=== PATIENT | male | born 1965 | race American Indian/Alaskan Native ===

== ENCOUNTER 2022-11-11 11:12 | Outpatient (AMB) | payer OTHER, SELFPAY ==
[2022-11-11 11:21] VITALS: BP 128/76; PULSE 83; O2SAT 97; BMI 31.8
--- NOTE | 2022-11-11 11:21 | MHC.PC.OV ---
Vital Signs 11/11/22 11:21 Height 6 ft 1 in Weight 241 lb BMI 31.8 BP 128/76 Blood Pressure Location Lt brachial Position Sitting Pulse 83 Pulse Source Pulse Oximeter Pulse Oximetry (%) 97 Oxygen Delivery Method Room Air Intake Visit Reasons: Hypercholesterolemia chronic low back pain Allergies No Known Allergies Allergy (Verified 11/11/22 11:22) Medication List - Last Reconciled 11/11/22 by Dagoberto Varela MD alprazolam 0.25 mg PO DAILY ascorbate calcium (vitamin C) 500 mg PO DAILY mecobalamin (vitamin B12) 1,000 mcg PO DAILY metaxalone 800 mg PO TID multivitamin 1 tab PO DAILY [id number] 1,000-50 mg (Airborne) ea PO tramadol 50 mg PO Q8H 30 days Tobacco use date assessed: 05/06/22 Dental Screening Dental Screen Date: 11/11/22 Did you have a dental visit in the last 12 months?: Yes Did you have a dental problem in the last 6 months where you did not have access to dental care?: No Was dental information given to patient?: Patient has dentist HPI Hypercholesterolemia chronic low back pain HPI Details 57-year-old obese male with chronic low back pain on narcotic pain medication taken p.r.n. PTSD and hypercholesterolemia last seen in July 2022 patient is up-to-date with colonoscopy patient had blood work done in [facility] October 2022 B12 sugar normal kidney function is normal liver numbers are normal folic acid normal cholesterol total should be less than 200 patient's number is 228 triglyceride needs to be less than 150 his numbers 282 bad cholesterol needs to be less than 130 his numbers 129 prostate number is normal thyroid number is normal no anemia PFSH Medical History (Updated 08/05/22 @ 11:07 by Dagoberto Varela MD) Alcohol abuse Asthma Erectile dysfunction Hypercholesterolemia Low back pain Obesity (BMI 30-39.9) PTSD (post-traumatic stress disorder) Vitamin D deficiency Surgical History History of colonoscopy Family History (Updated 08/05/22 @ 10:50 by Ana Paula Guillermo CMA) Father Bone cancer Depression Mother Colon cancer Diabetes Stroke Myocardial infarction, acute, initial episode of care Social History Housing: Apartment Alcohol intake: former Patient Tobacco Use Status: Former Tobacco user Tobacco use type: Cigarette Years Smoked: stopped 2009 e-Cigarette/Vaping Use: Never Used Second Hand Smoke Exposure: No service: No Current occupational status: retired Cognitive needs: No Hearing needs: No Vision needs: Yes Questionnaire PHQ-9 Over the last 2 weeks, how often have you been bothered by any of the following problems? 1. Little interest or pleasure in doing things: not at all 2. Feeling down, depressed, or hopeless: not at all 3. Trouble falling or staying asleep, or sleeping too much: not at all 4. Feeling tired or having little energy: not at all 5. Poor appetite or overeating: not at all 6. Feeling bad about yourself - or that you are a failure or have let yourself or your family down: not at all 7. Trouble concentrating on things, such as reading the newspaper or watching television: not at all 8. Moving or speaking so slowly that other people could have noticed. Or the opposite - being so fidgety or restless that you have been moving around a lot more than usual: not at all 9. Thoughts that you would be better off or of hurting yourself in some way: not at all Total score: 0 Depression Screening Interpretation: Negative Source: Developed by Drs. Orlin Dial, Darnell Mercado and colleagues, with an educational lucas from [employer]. Thrive Questionnaire Date Thrive assessed: 05/06/22 AUDIT C Alcohol Use Questionnaire (AUDIT-C) 1. How often do you have a drink containing alcohol?: Never 3. How often do you have six or more drinks on one occasion?: Never Total Score: 0 TANIYA-7 AMB Questionnaire TANIYA-7 Date TANIYA - 7 assessed: 05/06/22 Source: Developed by Drs. Orlin Dial, Darnell Mercado and colleagues, with an educational lucas from [employer]. Physical exam (Primary Care) Vital Signs: Last Vital Signs Pulse 83 11/11/22 11:21 BP 128/76 11/11/22 11:21 Pulse Ox 97 11/11/22 11:21 Oxygen Delivery Method Room Air 11/11/22 11:21 BMI result Body Mass Index 31.8 Tobacco/Smoking Status: Tobacco use Status Tobacco use date assessed 05/06/22 11/11/22 11:24 Patient Tobacco Use Status Former Tobacco user 11/11/22 11:24 Tobacco use type Cigarette 11/11/22 11:24 e-Cigarette/Vaping Use Never Used 11/11/22 11:24 PHQ-9: PHQ-9 Score PHQ-9: Total score 0 11/11/22 11:24 Depression Screening Interpretation: Negative Thrive Assessment: Date of Thrive Assessment Date Thrive assessed 05/06/22 11/11/22 11:24 Const General: alert; No acute distress Eyes Conjunctivae: conjunctivae normal Resp Auscultation: clear to auscultation bilaterally Cardio Rate: regular rate Rhythm: regular rhythm GI Inspection: Yes normal to inspection Extrem General: Yes normal to inspection and No edema Assessment and Plan Assessment & Plan (1) Generalized anxiety disorder: Comment: Declined referral for counseling Code(s): F41.1 - Generalized anxiety disorder Plan: Continue with present medication as needed (2) Hypercholesterolemia: Code(s): E78.00 - Pure hypercholesterolemia, unspecified Plan: Avoid fried foods, chicken skin, eggs, butter margarine, pastries and meat. Be it pork or beef they have a lot of cholesterol LDL goal of less than 130 and triglyceride of less than 150 (3) Obesity (BMI 30-39.9): Code(s): E66.9 - Obesity, unspecified Plan: Diet and exercise (4) Low back pain: Comment: Left paracentral disc herniation L5-S1 2009 Code(s): M54.5 - Low back pain Qualifiers: Chronicity: chronic Back pain laterality: unspecified Sciatica presence: without sciatica Qualified Code(s): M54.5 - Low back pain; G89.29 - Other chronic pain Plan: Narcotic pain meds: Is being prescribed with the understanding that these medications are potentially addictive and should be used only when absolutely necessary and must always be secured. Any remaining pills should be safely disposed off appropriately. Patient is advised that narcotics can impaired judgment and one should not drive or operate heavy machinery while taking these medications. Never share these medications with anybody and do not leave them unattended. They will not be replaced under any circumstances. Medications: Refilled metaxalone 800 mg PO TID 90 tabs 1RF G89.29 - Other chronic pain, M54.5 - Low back pain Coding Level of Care Code Est Pt Level 4 (00378) Diagnoses Generalized anxiety disorder F41.1 Hypercholesterolemia E78.00 Obesity (BMI 30-39.9) E66.9 Low back pain M54.5; G89.29 Chronicity: chronic Back pain laterality: unspecified Sciatica presence: without sciatica Additional Codes PHQ-9 - 45829 - PHQ-9 Billing: Y ([id number])
== END 2022-11-11 11:52 | disposition home or self-care (01) ==
PROVIDERS: PCP Internal Medicine; Visit Provider Internal Medicine
DX: F41.1 Generalized anxiety disorder (principal); E78.00 Pure hypercholesterolemia, unspecified; Z68.31 Body mass index [BMI] 31.0-31.9, adult; E66.9 Obesity, unspecified; M54.50 Low back pain, unspecified; G89.29 Other chronic pain
CPT/HCPCS: 99214

== ENCOUNTER 2023-06-09 14:11 | Outpatient (AMB) | payer OTHER, SELFPAY ==
--- NOTE | 2023-06-09 14:12 | A.OFFPC_ITS ---
Vital Signs 06/09/23 14:14 Height 6 ft 1 in Weight 244 lb 4 oz BMI 32.2 BP 120/60 Blood Pressure Location Lt brachial Position Sitting Pulse 79 Pulse Source Pulse Oximeter Pulse Oximetry (%) 96 Oxygen Delivery Method Room Air Intake Visit Reasons: LBP, Cholesterol Intake Note: Patient is here to follow up on LBP, Cholesterol. Solar Lab Technician Required: No Vehicle Controls Engineer: Not Required per policy Accompanied by: Self / Same As Patient Allergies No Known Allergies Allergy (Verified 06/09/23 14:13) Tobacco use date assessed: 06/09/23 Dental Screening Dental Screen Date: 06/09/23 Did you have a dental visit in the last 12 months?: No Did you have a dental problem in the last 6 months where you did not have access to dental care?: No Was dental information given to patient?: Patient has dentist HPI LBP, Cholesterol HPI Details 58-year-old obese male with chronic low back pain on narcotic pain medication hypercholesterolemia and generalized anxiety disorder last seen in October 2022. Patient's colonoscopy 2018. noted weight gain [facility] Medical History (Updated 06/09/23 @ 14:17 by Dagoberto Varela MD) Alcohol abuse Erectile dysfunction Hypercholesterolemia PTSD (post-traumatic stress disorder) Vitamin D deficiency Obesity (BMI 30-39.9) Asthma Low back pain Surgical History History of colonoscopy Family History Father Bone cancer Depression Mother Colon cancer Diabetes Stroke Myocardial infarction, acute, initial episode of care Social History (Updated 06/09/23 @ 14:19 by MIKAEL Solares) Housing: Apartment Alcohol intake: former Patient Tobacco Use Status: Former Tobacco user Tobacco use type: Cigarette Years Smoked: stopped 2009 e-Cigarette/Vaping Use: Currently Using Second Hand Smoke Exposure: No service: No Current occupational status: retired Cognitive needs: No Hearing needs: No Vision needs: Yes Questionnaire PHQ-9 Over the last 2 weeks, how often have you been bothered by any of the following problems? 1. Little interest or pleasure in doing things: not at all 2. Feeling down, depressed, or hopeless: several days 3. Trouble falling or staying asleep, or sleeping too much: several days 4. Feeling tired or having little energy: not at all 5. Poor appetite or overeating: several days 6. Feeling bad about yourself - or that you are a failure or have let yourself or your family down: several days 7. Trouble concentrating on things, such as reading the newspaper or watching television: several days 8. Moving or speaking so slowly that other people could have noticed. Or the opposite - being so fidgety or restless that you have been moving around a lot more than usual: several days 9. Thoughts that you would be better off or of hurting yourself in some way: not at all Total score: 6 Depression Screening Interpretation: Positive Depression Screening Done: Yes Source: Developed by Drs. Orlin Dial, Alondra Helm, Darnell Snow and colleagues, with an educational lucas from [employer]. Thrive Questionnaire Date Thrive assessed: 06/09/23 I am a: Patient What is your living situation today?: I have a steady place to live Within the past 12 months, did the food you bought not last and you didn't have the money to get more?: Never true Within the past 12 months, did you worry whether your food would run out before you got money to buy more?: Never true Do you have trouble paying for medicines?: No Do you have trouble getting transportation to medical appointments?: No Do you have trouble paying your heating and electricity bill?: No Do you have trouble taking care of your child, family member or friend?: No Do you have trouble with day-to-day activities such as bathing, preparing meals, shopping, managing finances, etc.?: No Are you currently unemployed and looking for a job?: No Are you interested in more education?: No Currently or been in a relationship where the following occur: no concerns reported THRIVE Score: 0 AUDIT C Alcohol Use Questionnaire (AUDIT-C) 1. How often do you have a drink containing alcohol?: Never Total Score: 0 TANIYA-7 AMB Questionnaire TANIYA-7 Date TANIYA - 7 assessed: 06/09/23 Feeling nervous, anxious, or on edge: 1 = Several days Not being able to stop or control worryin = Several days Worrying too much about different things: 1 = Several days Trouble relaxin = Several days Being so restless that it is hard to sit still: 1 = Several days Becoming easily annoyed or irritable: 0 = Not at all Feeling afraid as if something awful might happen: 0 = Not at all Total TANIYA-7 score (0-4 normal; 5-9 mild; 10-14 moderate; 15-21 severe): 5 Source: Developed by Drs. Orlin Dial, Alondra Helm, Darnell Snow and colleagues, with an educational lucas from [employer]. Physical exam (Primary Care) Vital Signs: Last Vital Signs Pulse 79 06/09/23 14:14 BP 120/60 06/09/23 14:14 Pulse Ox 96 06/09/23 14:14 Oxygen Delivery Method Room Air 06/09/23 14:14 BMI result Body Mass Index 32.2 Tobacco/Smoking Status: Tobacco use Status Tobacco use date assessed 06/09/23 06/09/23 14:18 Patient Tobacco Use Status Former Tobacco user 06/09/23 14:19 Tobacco use type Cigarette 06/09/23 14:19 e-Cigarette/Vaping Use Currently Using 06/09/23 14:22 PHQ-9: PHQ-9 Score PHQ-9: Total score 6 06/09/23 14:22 Depression Screening Interpretation: Positive Thrive Assessment: Date of Thrive Assessment Date Thrive assessed 06/09/23 06/09/23 14:18 Currently or been in a relationship where the following occur: no concerns reported Const General: alert; No acute distress Eyes Conjunctivae: conjunctivae normal Resp Auscultation: clear to auscultation bilaterally Cardio Rate: regular rate Rhythm: regular rhythm GI Inspection: Yes normal to inspection Extrem General: Yes normal to inspection and No edema Assessment and Plan Assessment & Plan (1) Low back pain: Comment: Left paracentral disc herniation L5-S1 2009 Code(s): M54.5 - Low back pain Qualifiers: Back pain laterality: unspecified Chronicity: chronic Sciatica presence: without sciatica Qualified Code(s): M54.5 - Low back pain; G89.29 - Other chronic pain Plan: Narcotic pain meds: Is being prescribed with the understanding that these medications are potentially addictive and should be used only when absolutely necessary and must always be secured. Any remaining pills should be safely disposed off appropriately. Patient is advised that narcotics can impaired judgment and one should not drive or operate heavy machinery while taking these medications. Never share these medications with anybody and do not leave them unattended. They will not be replaced under any circumstances. (2) Obesity (BMI 30-39.9): Code(s): E66.9 - Obesity, unspecified Plan: Diet and exercise (3) Hypercholesterolemia: Code(s): E78.00 - Pure hypercholesterolemia, unspecified Plan: Avoid fried foods, chicken skin, eggs, butter margarine, pastries and meat. Be it pork or beef they have a lot of cholesterol (4) Generalized anxiety disorder: Comment: Declined referral for counseling Code(s): F41.1 - Generalized anxiety disorder Plan: Continue with present therapy (5) Tubular adenoma of colon: Code(s): D12.6 - Benign neoplasm of colon, unspecified Plan: Patient is reminded about colonoscopy Orders: Referrals Gastroenterology Referral D12.6 - Benign neoplasm of colon, unspecified Medications: Refilled tramadol 50 mg PO Q8H 30 days 90 tabs 0RF G89.29 - Other chronic pain, M54.5 - Low back pain metaxalone 800 mg PO TID 90 tabs 1RF G89.29 - Other chronic pain, M54.5 - Low back pain Coding Level of Care Code Est Pt Level 4 (37041) Diagnoses Chronic low back pain without sciatica, unspecified back pain laterality M54.5; G89.29 Back pain laterality: unspecified Chronicity: chronic Sciatica presence: without sciatica Obesity (BMI 30-39.9) E66.9 Hypercholesterolemia E78.00 Generalized anxiety disorder F41.1 Tubular adenoma of colon D12.6
[2023-06-09 14:14] VITALS: BP 120/60; PULSE 79; O2SAT 96; BMI 32.2
== END 2023-06-09 14:35 | disposition home or self-care (01) ==
PROVIDERS: PCP Internal Medicine; Visit Provider Internal Medicine
DX: M54.50 Low back pain, unspecified (principal); G89.29 Other chronic pain; Z68.32 Body mass index [BMI] 32.0-32.9, adult; E66.9 Obesity, unspecified; E78.00 Pure hypercholesterolemia, unspecified; F41.1 Generalized anxiety disorder; D12.6 Benign neoplasm of colon, unspecified
CPT/HCPCS: 99214

== ENCOUNTER 2023-09-18 09:16 | Outpatient (AMB) | payer OTHER, SELFPAY ==
[2023-09-18 09:19] VITALS: BP 122/78; PULSE 74; O2SAT 98; BMI 31.9
--- NOTE | 2023-09-18 09:19 | MHC.PC.OV ---
Vital Signs 09/18/23 09:19 Height 6 ft 1 in Weight 242 lb 0.8 oz BMI 31.9 BP 122/78 Blood Pressure Location Lt brachial Position Sitting Pulse 74 Pulse Source Pulse Oximeter Pulse Oximetry (%) 98 Oxygen Delivery Method Room Air Intake Visit Reasons: LBP Performance Manager Required: No Allergies No Known Allergies Allergy (Verified 09/18/23 09:19) Medication List - Last Reconciled 09/18/23 by Dagoberto Varela MD alprazolam 0.25 mg PO DAILY ascorbate calcium (vitamin C) 500 mg PO DAILY mecobalamin (vitamin B12) 1,000 mcg PO DAILY metaxalone 800 mg PO TID multivitamin 1 tab PO DAILY [id number] 1,000-50 mg (Airborne) ea PO tramadol 50 mg PO Q8H 30 days Tobacco use date assessed: 09/18/23 Dental Screening Dental Screen Date: 06/09/23 HPI LBP HPI Details 58-year-old obese male with chronic low back pain on narcotic pain medication hypercholesterolemia generalized anxiety disorder. Patient has had colonoscopy in March 2014 having tubular adenoma and was advised to get to follow-up with Gastroenterology again. Last seen 06/10/2023 together 15 years and got recently. has spoken with Dr. Lyon- October 03, 2023. [facility] Medical History (Updated 09/18/23 @ 09:41 by Dagoberto Varela MD) Alcohol abuse Erectile dysfunction Hypercholesterolemia PTSD (post-traumatic stress disorder) Vitamin D deficiency Obesity (BMI 30-39.9) Asthma Low back pain Surgical History History of colonoscopy Family History Father Bone cancer Depression Mother Colon cancer Diabetes Stroke Myocardial infarction, acute, initial episode of care Social History (Updated 06/09/23 @ 14:19 by MIKAEL Solares) Housing: Apartment Alcohol intake: former Patient Tobacco Use Status: Former Tobacco user Tobacco use type: Cigarette Years Smoked: stopped 2009 e-Cigarette/Vaping Use: Currently Using Second Hand Smoke Exposure: No service: No Current occupational status: retired Cognitive needs: No Hearing needs: No Vision needs: Yes Questionnaire Thrive Questionnaire Date Thrive assessed: 06/09/23 I am a: Patient What is your living situation today?: I have a steady place to live Within the past 12 months, did the food you bought not last and you didn't have the money to get more?: Never true Within the past 12 months, did you worry whether your food would run out before you got money to buy more?: Never true Do you have trouble paying for medicines?: No Do you have trouble getting transportation to medical appointments?: No Do you have trouble paying your heating and electricity bill?: No Do you have trouble taking care of your child, family member or friend?: No Do you have trouble with day-to-day activities such as bathing, preparing meals, shopping, managing finances, etc.?: No Are you currently unemployed and looking for a job?: No Are you interested in more education?: No Currently or been in a relationship where the following occur: no concerns reported THRIVE Score: 0 AUDIT C Alcohol Use Questionnaire (AUDIT-C) 1. How often do you have a drink containing alcohol?: Never Total Score: 0 TANIYA-7 AMB Questionnaire TANIYA-7 Date TANIYA - 7 assessed: 06/09/23 Source: Developed by Drs. Orlin Dial, Alondra Helm, Darnell Snow and colleagues, with an educational lucas from [employer]. Physical exam (Primary Care) Vital Signs: Last Vital Signs Pulse 74 09/18/23 09:19 BP 122/78 09/18/23 09:19 Pulse Ox 98 09/18/23 09:19 Oxygen Delivery Method Room Air 09/18/23 09:19 BMI result Body Mass Index 31.9 Tobacco/Smoking Status: Tobacco use Status Tobacco use date assessed 09/18/23 09/18/23 09:19 Patient Tobacco Use Status Former Tobacco user 09/18/23 09:19 Tobacco use type Cigarette 09/18/23 09:19 e-Cigarette/Vaping Use Currently Using 09/18/23 09:19 Thrive Assessment: Date of Thrive Assessment Date Thrive assessed 06/09/23 09/18/23 09:19 Currently or been in a relationship where the following occur: no concerns reported Const General: alert; No acute distress Eyes Conjunctivae: conjunctivae normal Resp Auscultation: clear to auscultation bilaterally Cardio Rate: regular rate Rhythm: regular rhythm GI Inspection: Yes normal to inspection Extrem General: Yes normal to inspection and No edema Assessment and Plan Assessment & Plan (1) Tubular adenoma of colon: Comment: Two thousand fourteen otherwise Code(s): D12.6 - Benign neoplasm of colon, unspecified Plan: Patient is reminded about colonoscopy again. (2) Obesity (BMI 30-39.9): Code(s): E66.9 - Obesity, unspecified Plan: Diet and exercise (3) Low back pain: Comment: Left paracentral disc herniation L5-S1 2009 Code(s): M54.5 - Low back pain Qualifiers: Chronicity: chronic Back pain laterality: unspecified Sciatica presence: without sciatica Qualified Code(s): M54.5 - Low back pain; G89.29 - Other chronic pain Plan: Narcotic pain meds: Is being prescribed with the understanding that these medications are potentially addictive and should be used only when absolutely necessary and must always be secured. Any remaining pills should be safely disposed off appropriately. Patient is advised that narcotics can impaired judgment and one should not drive or operate heavy machinery while taking these medications. Never share these medications with anybody and do not leave them unattended. They will not be replaced under any circumstances. (4) Hypercholesterolemia: Code(s): E78.00 - Pure hypercholesterolemia, unspecified Plan: Avoid fried foods, chicken skin, eggs, butter margarine, pastries and meat. Be it pork or beef they have a lot of cholesterol 11/07/2022 last blood work (5) Generalized anxiety disorder: Comment: Declined referral for counseling Code(s): F41.1 - Generalized anxiety disorder Plan: Continue with present medication Orders: Orders Complete Blood Count Auto Diff 2 Months E78.00 - Pure hypercholesterolemia, unspecified Free T4 (Free Thyroxine) 2 Months E78.00 - Pure hypercholesterolemia, unspecified Lipid Panel 2 Months E78.00 - Pure hypercholesterolemia, unspecified Vitamin B12 and Folate 2 Months E78.00 - Pure hypercholesterolemia, unspecified Comprehensive Met. Panel 2 Months E78.00 - Pure hypercholesterolemia, unspecified Thyroid Stimulating Hormone 2 Months E78.00 - Pure hypercholesterolemia, unspecified Prostate Specific Antigen Scr 2 Months E78.00 - Pure hypercholesterolemia, unspecified Coding Level of Care Code Est Pt Level 4 (75775) Diagnoses Tubular adenoma of colon D12.6 Obesity (BMI 30-39.9) E66.9 Chronic low back pain without sciatica, unspecified back pain laterality M54.5; G89.29 Chronicity: chronic Back pain laterality: unspecified Sciatica presence: without sciatica Hypercholesterolemia E78.00 Generalized anxiety disorder F41.1
== END 2023-09-18 09:57 | disposition home or self-care (01) ==
PROVIDERS: PCP Internal Medicine; Visit Provider Internal Medicine
DX: D12.6 Benign neoplasm of colon, unspecified (principal); E66.9 Obesity, unspecified; Z68.41 Body mass index [BMI] 40.0-44.9, adult; M54.50 Low back pain, unspecified; G89.29 Other chronic pain; E78.00 Pure hypercholesterolemia, unspecified; F41.1 Generalized anxiety disorder
CPT/HCPCS: 99214

== ENCOUNTER 2024-01-22 08:48 | Outpatient (AMB) | payer BC, SELFPAY ==
--- NOTE | 2024-01-22 08:50 | MHC.PC.OV ---
Vital Signs 01/22/24 08:51 Height 6 ft 1 in Weight 111.13 kg BMI 32.3 BP 118/78 Blood Pressure Location Lt brachial Position Sitting Pulse 71 Pulse Source Pulse Oximeter Pulse Oximetry (%) 97 Oxygen Delivery Method Room Air Intake Visit Reasons: CLBP Director Paid Media Required: No Accompanied by: Self / Same As Patient Allergies cortisone Adverse Reaction (Mild, Verified 01/22/24 08:52) Itching Medication List - Last Reconciled 01/22/24 by Dagoberto Varela MD alprazolam 0.25 mg PO DAILY ascorbate calcium (vitamin C) 500 mg PO DAILY ketoconazole 2% 1 appl topical 2XW mecobalamin (vitamin B12) 1,000 mcg PO DAILY metaxalone 800 mg PO TID multivitamin 1 tab PO DAILY [id number] 1,000-50 mg (Airborne) ea PO tramadol 50 mg PO Q8H 30 days Tobacco use date assessed: 09/18/23 Dental Screening Dental Screen Date: 01/22/24 Did you have a dental visit in the last 12 months?: No Did you have a dental problem in the last 6 months where you did not have access to dental care?: No Was dental information given to patient?: Patient has dentist HPI CLBP HPI Details 58-year-old obese male with chronic low back pain hypercholesterolemia generalized anxiety disorder last seen in 09/08/2023. Patient has been reminded about colonoscopy because of the last test in 2013. He is scheduled in January. Complete blood work 11/07/2022 LDL of 129 triglyceride of 282. complains of having dry scalp and prutitic PFSH Medical History (Updated 01/22/24 @ 09:22 by Dagoberto Varela MD) Alcohol abuse Erectile dysfunction Hypercholesterolemia PTSD (post-traumatic stress disorder) Vitamin D deficiency Obesity (BMI 30-39.9) Asthma Low back pain Surgical History History of colonoscopy Family History Father Bone cancer Depression Mother Colon cancer Diabetes Stroke Myocardial infarction, acute, initial episode of care Social History Housing: Apartment Alcohol intake: former Patient Tobacco Use Status: Former Tobacco user Tobacco use type: Cigarette Years Smoked: stopped 2009 e-Cigarette/Vaping Use: Currently Using Second Hand Smoke Exposure: No service: No Current occupational status: retired Cognitive needs: No Hearing needs: No Vision needs: Yes Questionnaire Thrive Questionnaire Date Thrive assessed: 06/09/23 Are you currently unemployed and looking for a job?: No TANIYA-7 AMB Questionnaire TANIYA-7 Date TANIYA - 7 assessed: 06/09/23 Source: Developed by Drs. Orlin Dial, Alondra Helm, Darnell Snow and colleagues, with an educational lucas from [employer]. Physical exam (Primary Care) Vital Signs: Last Vital Signs Pulse 71 01/22/24 08:51 BP 118/78 01/22/24 08:51 Pulse Ox 97 01/22/24 08:51 Oxygen Delivery Method Room Air 01/22/24 08:51 BMI result Body Mass Index 32.3 Tobacco/Smoking Status: Tobacco use Status Tobacco use date assessed 09/18/23 01/22/24 08:56 Patient Tobacco Use Status Former Tobacco user 01/22/24 08:56 Tobacco use type Cigarette 01/22/24 08:56 e-Cigarette/Vaping Use Currently Using 01/22/24 08:56 Thrive Assessment: Date of Thrive Assessment Date Thrive assessed 06/09/23 01/22/24 08:56 Const General: alert; No acute distress Eyes Conjunctivae: conjunctivae normal Resp Auscultation: clear to auscultation bilaterally Cardio Rate: regular rate Rhythm: regular rhythm GI Inspection: Yes normal to inspection Extrem General: Yes normal to inspection and No edema Office Procedures Flu Questionnaire Does the patient have a severe egg allergy?: No Does the patient have severe life threatening allergies?: No Does the patient have a fever or illness today?: No Has the patient ever had Guillain-Firebaugh Syndrome?: No Has the patient ever had any past reaction to a flu shot?: No Immunizations Fluarix Triv [id number] (PF) 45 mcg (15 mcg x 3)/0.5 mL IM syringe Performing Provider: Dagoberto Varela MD [facility] Administered by: MIKAEL Gomez on 01/22/24 09:34 Dose Route Admin Location Dispensed Lot Number Expiration Date NDC Lace Tearing Supervisor 0.5 mL IM Left Deltoid 0.5 mL [id number] 10/18/24 16417-583-08 [email or web address] VIS Given Date VIS Provided VIS Publication Date 01/22/24 Single Vaccine 20 Eligibility Eligibility Date Funding Source Not [facility] Eligible 01/22/24 Private Coding Level of Care Code Est Pt Level 4 (07140) Diagnoses Obesity (BMI 30-39.9) E66.9 Hypercholesterolemia E78.00 Generalized anxiety disorder F41.1 Tubular adenoma of colon D12.6 Mild intermittent asthma without complication J45.20 Asthma complication type: uncomplicated Asthma persistence: intermittent Asthma severity: mild Chronic low back pain without sciatica, unspecified back pain laterality M54.5; G89.29 Back pain laterality: unspecified Chronicity: chronic Sciatica presence: without sciatica Seborrhea L21.9 Assessment & Plan Assessment & Plan (1) Obesity (BMI 30-39.9): Code(s): E66.9 - Obesity, unspecified Category: Medical Plan: Diet and exercise (2) Hypercholesterolemia: Code(s): E78.00 - Pure hypercholesterolemia, unspecified Category: Medical Plan: Avoid fried foods, chicken skin, eggs, butter margarine, pastries and meat. Be it pork or beef they have a lot of cholesterol LDL goal of less than 130 and triglyceride of less than 150. Triglyceride 11/08/23 tested 282 (3) Generalized anxiety disorder: Comment: Declined referral for counseling Code(s): F41.1 - Generalized anxiety disorder Category: Medical Plan: Continue with present therapy declined counseling. (4) Tubular adenoma of colon: Comment: Two thousand fourteen otherwise Code(s): D12.6 - Benign neoplasm of colon, unspecified Category: Medical Plan: Patient has a colonoscopy scheduled in 02/08/2024 (5) Asthma: Code(s): J45.909 - Unspecified asthma, uncomplicated Category: Medical Qualifiers: Asthma complication type: uncomplicated Asthma persistence: intermittent Asthma severity: mild Qualified Code(s): J45.20 - Mild intermittent asthma, uncomplicated Plan: Stable (6) Low back pain: Comment: Left paracentral disc herniation L5-S1 2009 Code(s): M54.5 - Low back pain Category: Medical Qualifiers: Back pain laterality: unspecified Chronicity: chronic Sciatica presence: without sciatica Qualified Code(s): M54.5 - Low back pain; G89.29 - Other chronic pain Plan: Continue with present medication lose the weight and keep active (7) Seborrhea: Code(s): L21.9 - Seborrheic dermatitis, unspecified Category: Medical Plan: ketoconazole sent Orders: Orders Influenza [id number] Immunization Today Z23 - Encounter for immunization Medications: New Fluarix Triv [id number] (PF) (flu vacc [id number] 6mos up(PF)) 0.5 mL IM ONCE 0.5 mL 0RF NS Z23 - Encounter for immunization ketoconazole 2% 1 appl topical 2XW 120 mL 0RF L21.9 - Seborrheic dermatitis, unspecified Refilled metaxalone 800 mg PO TID 90 tabs 1RF G89.29 - Other chronic pain, M54.5 - Low back pain tramadol 50 mg PO Q8H 90 tabs 2RF 30 days G89.29 - Other chronic pain, M54.5 - Low back pain
[2024-01-22 08:51] VITALS: BP 118/78; PULSE 71; O2SAT 97; BMI 32.3
== END 2024-01-22 09:38 | disposition home or self-care (01) ==
PROVIDERS: PCP Internal Medicine; Visit Provider Internal Medicine
DX: J45.20 Mild intermittent asthma, uncomplicated (principal); E66.811 Obesity, class 1; Z68.32 Body mass index [BMI] 32.0-32.9, adult; E78.00 Pure hypercholesterolemia, unspecified; F41.1 Generalized anxiety disorder; Z23 Encounter for immunization; D12.6 Benign neoplasm of colon, unspecified; M54.50 Low back pain, unspecified; G89.29 Other chronic pain; L21.9 Seborrheic dermatitis, unspecified

== ENCOUNTER → 2024-01-22 08:48 | Outpatient (BNVA) | payer BC, SELFPAY | PROVIDERS: PCP Internal Medicine; Visit Provider Internal Medicine | DX: E66.9 Obesity, unspecified (principal); Z68.32 Body mass index [BMI] 32.0-32.9, adult; E78.00 Pure hypercholesterolemia, unspecified; F41.1 Generalized anxiety disorder; Z23 Encounter for immunization; J45.20 Mild intermittent asthma, uncomplicated; G89.29 Other chronic pain; M54.50 Low back pain, unspecified; L21.9 Seborrheic dermatitis, unspecified; Z86.0101 Personal history of adenomatous and serrated colon polyps | CPT/HCPCS: 90471; 90656 ==

== ENCOUNTER 2024-02-06 12:06 | Day surgery (SDC) | payer BC, SELFPAY ==
[2024-01-28 11:47] VITALS: BMI 33.6
--- NOTE | 2024-02-05 09:36 | HO.ANESPROP2 ---
Documented by User: Audrey Taveras NP 02/05/24 09:38 HPI - Anesthesia Eval Consult details Narrative: 58yo M for Colonoscopy PMFSH Active Problems Active Problems: All Active Problems Seborrhea (Acute) Tubular adenoma of colon (Acute) COVID-19 virus infection (Acute) Generalized anxiety disorder (Acute) Onychomycosis (Acute) Vision changes (Acute) Annual physical exam (Acute) Shoulder pain, right (Acute) Hypercholesterolemia (Acute) PTSD (post-traumatic stress disorder) (Acute) Obesity (BMI 30-39.9) (Acute) Asthma (Acute) Low back pain (Acute) Past Medical History Medical History Alcohol abuse Erectile dysfunction Hypercholesterolemia PTSD (post-traumatic stress disorder) Vitamin D deficiency Obesity (BMI 30-39.9) Asthma Low back pain Family History Family History Father Bone cancer Depression Mother Colon cancer Diabetes Stroke Myocardial infarction, acute, initial episode of care Surgical History Surgical History History of colonoscopy Social History Social History Household Members: Spouse Housing: Apartment Are you a primary intensive care medicine specialist to a significant other at home: No Do you presently have visiting nurse or other home services: No Alcohol intake: former Patient Tobacco Use Status: Former Tobacco user Tobacco use type: Cigarette Years Smoked: stopped 2009 e-Cigarette/Vaping Use: Currently Using Second Hand Smoke Exposure: No Use of substances other than those prescribed or required for medical reasons: No Have you been hit, kicked, punched, or otherwise hurt by someone within the past year? If so, by whom?: No Are you DNR?: No Advance Directives: No Advance Directives Information Provided: Yes Recently lost weight without trying: No service: No Current occupational status: retired Cognitive needs: No Hearing needs: No Vision needs: Yes Meds Allergies Allergy/AdvReac Type Severity Reaction Status Date / Time cortisone AdvReac Mild Itching Verified 01/22/24 08:52 Home Medications ?Medication ?Instructions ?Recorded ?Confirmed ?Last Taken ?Type alprazolam 0.25 mg tablet 0.25 mg PO DAILY 04/05/20 01/28/24 Unknown History multivitamin 1 tab PO DAILY 04/05/20 01/28/24 Unknown History aspirin 81 mg tablet,delayed 81 mg PO Q2D 01/28/24 01/28/24 Unknown History release Exam Height,Weight and Vital Signs: Height 5 ft 11.5 in Weight 110.677 kg Assessment and Plan Assessment Anesthesia Assessment: Chart Reviewed Documented by User: Yumiko Menchaca MD 02/06/24 13:19 PMFSH Past Medical History Medical History Alcohol abuse Erectile dysfunction Hypercholesterolemia PTSD (post-traumatic stress disorder) Vitamin D deficiency Obesity (BMI 30-39.9) Asthma Low back pain Family History Family History Father Bone cancer Depression Mother Colon cancer Diabetes Stroke Myocardial infarction, acute, initial episode of care Family history of problems with anesthesia: No Surgical History Surgical History History of colonoscopy History of Problems with Anesthesia: No Social History Social History Household Members: Spouse Housing: Apartment Are you a primary intensive care medicine specialist to a significant other at home: No Do you presently have visiting nurse or other home services: No Alcohol intake: former Patient Tobacco Use Status: Former Tobacco user Tobacco use type: Cigarette Years Smoked: stopped 2009 e-Cigarette/Vaping Use: Currently Using Second Hand Smoke Exposure: No Use of substances other than those prescribed or required for medical reasons: No Have you been hit, kicked, punched, or otherwise hurt by someone within the past year? If so, by whom?: No Are you DNR?: No Advance Directives: No Advance Directives Information Provided: Yes Recently lost weight without trying: No service: No Current occupational status: retired Cognitive needs: No Hearing needs: No Vision needs: Yes Meds Allergies Allergy/AdvReac Type Severity Reaction Status Date / Time cortisone AdvReac Mild Itching Verified 01/22/24 08:52 Home Medications ?Medication ?Instructions ?Recorded ?Confirmed ?Last Taken ?Type alprazolam 0.25 mg tablet 0.25 mg PO DAILY 04/05/20 01/28/24 Unknown History multivitamin 1 tab PO DAILY 04/05/20 01/28/24 Unknown History aspirin 81 mg tablet,delayed 81 mg PO Q2D 01/28/24 01/28/24 Unknown History release Exam Airway Mallampati Class: II TM Dist: >3cm Neck ROM: Full Heart: rrr Lungs: cta Assessment and Plan Assessment Anesthesia Assessment: Anesthesia Plan Discussed Final Anesthetic Review Family History of Problems with Anesthesia: No History of Problems with Anesthesia: No NPO: Yes ASA Class: II Final Preanesthetic Review: No Changes in Pt Med Stat, Meds/Allgs Chart Reviewed, Consent Obtained/Reviewed and Anes Risks/Benef Reviewed Patient Risk: Intermediate Procedure Risk: Low Anesthetic Plan Anesthetic Plan: MAC: Disposition: Standard PACU
[2024-02-06 12:23] VITALS: BP 122/68; PULSE 79; RESP 16; TEMP 36.7; O2SAT 97; BMI 31.5
[2024-02-06] MEDS: Lactated Ringers 1,000 ML 100 ML IVCONT (12:30)
[2024-02-06 15:36] VITALS: BP 108/58; PULSE 65; RESP 16; TEMP 36.6; O2SAT 98
--- NOTE | 2024-02-06 15:39 | P.BOP_ITS ---
Brief Operative Note Date of Service: 02/06/24 Pre-op diagnosis: Screening Post-op diagnosis: other (Diverticulosis) Procedure: Colonoscopy to the cecum and TI Surgeon: Orlin Eastman MD Anesthesia: MAC Was an Cutter And Edge Trimmer used for this Procedure?: No Estimated blood loss (mL): 0 Pathology: none sent Condition: stable Disposition: PACU
[2024-02-06 15:51] VITALS: BP 110/65; PULSE 66; RESP 16; O2SAT 99
[2024-02-06 16:06] VITALS: BP 111/78; PULSE 64; RESP 18; TEMP 36.6; O2SAT 99
--- NOTE | 2024-02-06 21:21 | OP_ITS ---
DATE OF SERVICE: 02/06/2024 SURGEON: Orlin Eastman MD INDICATIONS: The patient presents for evaluation of colorectal cancer screening and personal history of tubular adenoma of the colon, as well as family history of colon cancer. Full consent has been obtained from him for this, including risks of bleeding and perforation. PREOPERATIVE DIAGNOSIS: POSTOPERATIVE DIAGNOSIS: PROCEDURE PERFORMED: Colonoscopy to the cecum and terminal ileum. ESTIMATED BLOOD LOSS: COMPLICATIONS: ANESTHESIA: Monitored anesthesia care. ASSISTANTS: SPECIMENS: PREOPERATIVE DIAGNOSES: Colorectal cancer screening, family history of colon cancer, and personal history of colon polyp. POSTOPERATIVE DIAGNOSES: Colorectal cancer screening, family history of colon cancer, and personal history of colon polyp, diverticulosis, and internal hemorrhoids. DESCRIPTION OF PROCEDURE: The patient was placed in the left lateral decubitus position. The digital rectal exam revealed no abnormalities. The Olympus video pediatric colonoscope was entered into the rectum and advanced easily to the cecum. Once in the cecum, I did identify normal-appearing cecal pouch with appendiceal orifice and a normal-appearing ileocecal valve. The terminal ileum was cannulated and appeared normal. The scope was withdrawn back in the colon. The entire cecum and ileocecal valve appeared normal. The scope was slowly withdrawn assessing all mucosal surfaces carefully. Preparation was excellent. I did not visualize any sign of polyps, colitis, or angiodysplasia. There was significant diverticular disease in the descending and sigmoid colon. In the rectum, scope was retroflexed visualizing internal hemorrhoids, but no other pathology. The rectal mucosa appeared normal. Scope was straightened and withdrawn from the patient. He tolerated the procedure well, and was returned to the recovery area in stable condition. IMPRESSION: 1. Diverticulosis. 2. Internal hemorrhoids. PLAN: I would recommend a repeat colonoscopy in 5 years for further screening given the family history of colon cancer, and previous history of a tubular adenoma. He would otherwise see me on a p.r.n. basis. MD LINDSAY Knapp/FARHAT / [phone]
== END 2024-02-06 16:30 | disposition home or self-care (01) ==
PROVIDERS: PCP Internal Medicine; Visit Provider Internal Medicine
PROC: 0DJD8ZZ Inspection of Lower Intestinal Tract, Via Natural or Artificial Opening Endoscopic (ICD-10-PCS; CPT 45378; principal; 2024-02-06 13:20)
DX: Z12.11 Encounter for screening for malignant neoplasm of colon (principal); K57.30 Diverticulosis of large intestine without perforation or abscess without bleeding; K64.8 Other hemorrhoids; Z86.0101 Personal history of adenomatous and serrated colon polyps; Z80.0 Family history of malignant neoplasm of digestive organs; J45.909 Unspecified asthma, uncomplicated; Z87.891 Personal history of nicotine dependence; Z79.82 Long term (current) use of aspirin; Z79.899 Other long term (current) drug therapy
CPT/HCPCS: 45378; J2003; J2704

== ENCOUNTER 2024-03-17 10:22 | Outpatient (AMB) | payer BC, SELFPAY ==
--- NOTE | 2024-03-17 10:25 | MHC.PC.OV ---
Vital Signs 03/17/24 10:28 Height 6 ft 1 in Weight 246 lb BMI 32.5 BP 112/70 Blood Pressure Location Lt brachial Position Sitting Pulse 61 Pulse Source Pulse Oximeter Pulse Oximetry (%) 98 Oxygen Delivery Method Room Air Intake Visit Reasons: Annual Exam Allergies cortisone Adverse Reaction (Mild, Verified 03/17/24 10:28) Itching Medication List - Last Reconciled 03/17/24 by Dagoberto Varela MD ascorbate calcium (vitamin C) 500 mg PO DAILY aspirin 81 mg PO Q2D cyanocobalamin (vitamin B-12) 1,000 mcg PO DAILY ketoconazole 2% 1 appl topical 2XW metaxalone 800 mg PO TID multivitamin 1 tab PO DAILY tramadol 50 mg PO Q8H 30 days Tobacco use date assessed: 09/18/23 Dental Screening Dental Screen Date: 01/22/24 HPI Annual Exam HPI Details 59-year-old obese male with hypercholesterolemia asthma chronic low back pain on narcotic pain medication p.r.n. generalized anxiety disorder coming in for physical. Colon test done February 05 with results showing diverticulosis and internal hemorrhoids. Advised to repeat in 5 years. d. Patient is here [facility] Medical History Alcohol abuse Erectile dysfunction Hypercholesterolemia PTSD (post-traumatic stress disorder) Vitamin D deficiency Obesity (BMI 30-39.9) Asthma Low back pain Surgical History History of colonoscopy Family History Father Bone cancer Depression Mother Colon cancer Diabetes Stroke Myocardial infarction, acute, initial episode of care Social History Household Members: Spouse Housing: Apartment Are you a primary personal care assistant to a significant other at home: No Do you presently have visiting nurse or other home services: No Alcohol intake: former Patient Tobacco Use Status: Former Tobacco user Tobacco use type: Cigarette Years Smoked: stopped 2009 e-Cigarette/Vaping Use: Currently Using Second Hand Smoke Exposure: No service: No Current occupational status: retired Cognitive needs: No Hearing needs: No Vision needs: Yes Questionnaire PHQ-9 Over the last 2 weeks, how often have you been bothered by any of the following problems? 1. Little interest or pleasure in doing things: not at all 2. Feeling down, depressed, or hopeless: several days 3. Trouble falling or staying asleep, or sleeping too much: several days 4. Feeling tired or having little energy: not at all 5. Poor appetite or overeating: several days 6. Feeling bad about yourself - or that you are a failure or have let yourself or your family down: several days 7. Trouble concentrating on things, such as reading the newspaper or watching television: several days 8. Moving or speaking so slowly that other people could have noticed. Or the opposite - being so fidgety or restless that you have been moving around a lot more than usual: several days 9. Thoughts that you would be better off or of hurting yourself in some way: not at all Total score: 6 Depression Screening Interpretation: Positive Depression Screening Done: Yes Source: Developed by Drs. Orlin Dial, Alondra Helm, Darnell Snow and colleagues, with an educational lucas from [employer]. Thrive Questionnaire Date Thrive assessed: 03/17/24 I am a: Patient What is your living situation today?: I choose not to answer this question Within the past 12 months, did the food you bought not last and you didn't have the money to get more?: I choose not to answer this question Within the past 12 months, did you worry whether your food would run out before you got money to buy more?: I choose not to answer this question Do you have trouble paying for medicines?: I choose not to answer this question Do you have trouble getting transportation to medical appointments?: I choose not to answer this question Do you have trouble paying your heating and electricity bill?: I choose not to answer this question Do you have trouble taking care of your child, family member or friend?: I choose not to answer this question Do you have trouble with day-to-day activities such as bathing, preparing meals, shopping, managing finances, etc.?: I choose not to answer this question Are you interested in more education?: I choose not to answer this question Please select the resources that you would like help with: None Currently or been in a relationship where the following occur: No concerns reported THRIVE Score: 0 AUDIT C Alcohol Use Questionnaire (AUDIT-C) 1. How often do you have a drink containing alcohol?: Never Total Score: 0 TANIYA-7 AMB Questionnaire TANIYA-7 Date TANIYA - 7 assessed: 03/17/24 Feeling nervous, anxious, or on edge: 0 = Not at all Not being able to stop or control worryin = Not at all Worrying too much about different things: 0 = Not at all Trouble relaxin = Not at all Being so restless that it is hard to sit still: 0 = Not at all Becoming easily annoyed or irritable: 0 = Not at all Feeling afraid as if something awful might happen: 0 = Not at all Total TANIYA-7 score (0-4 normal; 5-9 mild; 10-14 moderate; 15-21 severe): 0 Source: Developed by Drs. Orlin Dial, Alondra Helm, Darnell Snow and colleagues, with an educational lucas from [employer]. Review of Systems Const Denies poor appetite and Denies weakness Eyes Denies no additional complaints ENT Reports Normal hearing present, Denies dizziness, Denies nasal congestion, Denies tinnitus and Denies sore throat Card Denies chest pain, Denies syncope, Denies rapid heart rate and Denies dyspnea Resp Denies cough and Denies dyspnea GI Denies change in stool character, Reports constipation, Denies diarrhea, Denies nausea and Denies vomiting Denies dysuria and Denies urinary frequency Neuro Reports Normal hearing present, Denies confusion, Denies dizziness, Denies syncope and Denies weakness Psych Denies confusion Physical exam (Primary Care) Vital Signs: Last Vital Signs Pulse 61 03/17/24 10:28 BP 112/70 03/17/24 10:28 Pulse Ox 98 03/17/24 10:28 Oxygen Delivery Method Room Air 03/17/24 10:28 BMI result Body Mass Index 32.5 Tobacco/Smoking Status: Tobacco use Status Tobacco use date assessed 09/18/23 03/17/24 10:26 Patient Tobacco Use Status Former Tobacco user 03/17/24 10:26 Tobacco use type Cigarette 03/17/24 10:26 e-Cigarette/Vaping Use Currently Using 03/17/24 10:26 PHQ-9: PHQ-9 Score PHQ-9: Total score 6 11/27/24 10:39 Depression Screening Interpretation: Positive Thrive Assessment: Date of Thrive Assessment Date Thrive assessed 03/17/24 03/17/24 10:26 Currently or been in a relationship where the following occur: No concerns reported Const General: No confusion Orientation/consciousness: No confusion HENMT Head: Yes normocephalic Ears: external ears normal and TM's normal bilaterally Face and sinus: Yes normal facial exam Mouth: moist mucous membranes Throat: Yes tonsils normal Eyes Conjunctivae: conjunctivae normal Pupils: Equal, round and reactive pupils present and Pupil accommodation reflex normal Direct Ophthalmoscopy: normal light reflex Neck Neck: No lymphadenopathy Thyroid: Thyroid normal Chest Chest palpation & inspection: normal inspection of the chest Resp Effort & Inspection: normal respiratory effort and no audible wheezes Auscultation: clear to auscultation bilaterally, no crackles, no wheezes and lung sounds not diminished Cardio Rate: regular rate Rhythm: regular rhythm Peripheral pulses: radial pulses present and dorsalis pedis present GI Palpation (GI): no masses Auscultation: normal bowel sounds and normoactive bowel sounds Rectal Exam - Male: Yes deferred Skin General skin exam: no rashes or lesions noted Rashes: no rashes Neuro General: No confusion Cranial nerves: Yes Equal, round and reactive pupils present and Yes Normal hearing present Cognition (Neuro): normal cognition Gait exam (Neuro): Normal gait present Motor exam (neuro): 5/5 motor strength present throughout Deep tendon reflexes (DTR's): Right brachioradialis reflex intensity grade: 2+, Left brachioradialis reflex intensity grade: 2+, Right patellar reflex intensity grade: 2+ and Left patellar reflex intensity grade: 2+ Extrem General: No edema Coding Level of Care Code Est Pt Prev Care 40-64y(94188) Diagnoses Annual physical exam Z00.00 Tubular adenoma of colon D12.6 Obesity (BMI 30-39.9) E66.9 Hypercholesterolemia E78.00 Generalized anxiety disorder F41.1 Chronic low back pain without sciatica, unspecified back pain laterality M54.5; G89.29 Chronicity: chronic Back pain laterality: unspecified Sciatica presence: without sciatica Assessment & Plan Assessment & Plan (1) Annual physical exam: Code(s): Z00.00 - Encounter for general adult medical examination without abnormal findings Category: Medical Plan: Patient is advised to eat healthy, keep well hydrated, keep active and have adequate sleep. (2) Tubular adenoma of colon: Comment: Two thousand fourteen otherwise, January 2024 5 years Code(s): D12.6 - Benign neoplasm of colon, unspecified Category: Medical Plan: Patient had a recent colonoscopy and advised repeat in 5 years. (3) Obesity (BMI 30-39.9): Code(s): E66.9 - Obesity, unspecified Category: Medical Plan: Diet and exercise (4) Hypercholesterolemia: Code(s): E78.00 - Pure hypercholesterolemia, unspecified Category: Medical Plan: Avoid fried foods, chicken skin, eggs, butter margarine, pastries and meat. Be it pork or beef they have a lot of cholesterol LDL goal of less than 130 and triglyceride of less than 150. (5) Generalized anxiety disorder: Comment: Declined referral for counseling Code(s): F41.1 - Generalized anxiety disorder Category: Medical Plan: Continue with present medication. (6) Low back pain: Comment: Left paracentral disc herniation L5-S1 2009 Code(s): M54.5 - Low back pain Category: Medical Qualifiers: Chronicity: chronic Back pain laterality: unspecified Sciatica presence: without sciatica Qualified Code(s): M54.5 - Low back pain; G89.29 - Other chronic pain Plan: Continue with tramadol p.r.n.
[2024-03-17 10:28] VITALS: BP 112/70; PULSE 61; O2SAT 98; BMI 32.5
== END 2024-03-17 11:12 | disposition home or self-care (01) ==
PROVIDERS: PCP Internal Medicine; Visit Provider Internal Medicine
DX: Z00.00 Encounter for general adult medical examination without abnormal findings (principal); D12.6 Benign neoplasm of colon, unspecified; E66.9 Obesity, unspecified; Z68.32 Body mass index [BMI] 32.0-32.9, adult; E78.00 Pure hypercholesterolemia, unspecified; F41.1 Generalized anxiety disorder; M54.50 Low back pain, unspecified; G89.29 Other chronic pain

== ENCOUNTER 2024-06-29 09:03 | Outpatient (REF) | payer BC, SELFPAY ==
[2024-06-29 09:34] LABS: MANUAL DIFF FLAG NO
--- OUTSIDE RECORDS SUMMARY | 2024-06-29 10:03 | XMS_ITS ---
Author Organization [facility] Address [address] [place] [address] Care Team Providers Care Curator Of Manuscripts Name Role Phone Dagoberto Varela MD Primary Care Provider Orlin Muhammad Unavailable [phone] REASON FOR VISIT COLON SCREENING Encounters Encounter Location Date Provider Diagnosis [facility] [place] [address], [place] [phone] 01/30/2024 Orlin Eastman Plan Of Treatment No Information Progress Notes * MARIONТАТЬЯНАDOB:1965 (59 yo M)Acc No.[id number]:01/30/2024 COLON WITH MAC Patient:?SOHAN Provider:?Orlin Eastman MD :1965???Age:58 Y???Sex:Male Loco e:01/30/2024 Address:[address] [place], [place] [phone] Pcp:Dagoberto Varela MD Subjective: * Chief Complaints: * ???1. COLON SCREENING. * Medical History:? Objective: * Vitals:? Assessment: Plan: * Treatment: * * The named appointment provid er may or may not be the originator of this progress note, and it is not deemed complete until electronically signed by the appointment provider. Sign off status: Pending * Provider:?Orlin Eastman MD Date:? 024 Generated for Shu stuart/Kobi/eTransmitting on:?06/29/2024 10:03 AM EDT
--- OUTSIDE RECORDS SUMMARY | 2024-06-29 10:03 | XMS_ITS ---
Author Organization [facility] Address [address] [place] [address] Care Team Providers Care Caustic Preparer Name Role Phone Po Dagoberto GREEN Primary Care Provider Orlin Muhammad [phone] Allergies Allergen (clinical drug ingredient) Drug/Non Drug [...] Problem History of polyp of colon (situation) (501884038) Personal history of colonic polyps (Z86.010) Active confirmed Problem Colon cancer screening (916055386) Colon cancer screening (Z12.11) Active confirmed Problem Family History of Cancer of Colon (Situation) (908717456) Family history of colon cancer (Z80.0) Active confirmed Problem Long-term current use of aspirin (9429527367880 03) Aspirin long-term use (Z79.82) Active confirmed Problem Pre-procedure evaluation check (769967938) Encounter for other preprocedural examination (Z01.818) Active confirmed Vital Signs Blood pressure systolic 00 mm Hg 10/03/19 24 Blood pressure diastolic 00 mm Hg 024 Height 71.5 in 10/03/2023 Weight 244 lbs 10/03/2023 BMI 33.55 kg/m2 10/03/2023 Encounters Encounter Location Date Provider Diagnosis [facility] [address] [place] [address] 10/03/2023 Orlin Eastman Personal history of colonic [...] for 1 week before the colonoscopy Overall, Soahn appears quite well. Given his age, his [...] Notes * SOHAN BYRNEDOB:1965 (58 yo M)Acc No.[id number]:10/03/2023 Progress Notes Patient:?SOHAN BYRNE Provider:?Orlin Eastman MD :1965???Age:58 Y???Sex:Male Loco e:10/03/2023 Address:[address] [place], [place] [phone] Pcp:Dagoberto Varela MD Subjective: * Chief Complaints: * ???Patient presents today fo r a screening colon * HPI: ???incontinence:? I saw Sohan in the office today for evaluation of his personal history of a tubular adenoma of the colon, his family history of colon cancer, and his need for colorectal cancer screening. ?I last saw Sohan in March of 2014, [...] malignancy in his 60s as well. * ROS:?General/Constitutional:?Change in appetite?denies.?Chills?denies.?Fatigue?denies.?Ophthalmologic:?Comments?all negative.?ENT:?Comments?all negative.?Respiratory:?hemoptysis?denies.?Cough?denies.?Cardiovascular:?Chest pain?denies.?Orthopnea?denies.?Gastrointestinal:?Comments?See HPI for details.?Genitourinary:?Hematuria?denies.?Dysuria?denies.?Musculoskeletal:?Painful joints?He has pain in his knees and back.?Weakness?denies.?Skin:?Itching?denies.?Rash?denies.?Neurologic:?Headache?denies.?Seizures?denies.?Psychiatric:?Comments?all negative.? * Medical History:? * Surgical History:?Denies Pas t Surgical History * Hospitalization/Major Diagno stic Procedure:?No Hospitalization History. * Family History:?Father: dece ased, at age age 64, diagnosed with Colon cancer.?Mother: , at age 64, diagnosed with Colon cancer.?Siblings: alive, colon polyp removed.? * Social History:?Tobacco Use:?Tobacco Use/Smoking?Are you a: former smoker , How long has it been since you last smoked?: 1-5 years.?Drugs/Alcohol:?Alcohol Screen?Points: 0, Interpretation: Negative.?Miscellaneous:?Marital status: 2023. Occupation: disabled from his back. ???Nonsmoker since 2012; no alcohol. * Medications:?TakingSkelaxin Aspirin 81 , Notes: QODMultivitamin traMADol HCl [...] reviewed and reconciled with the patient * Allergies:?Cortisoneyes[Nicko rgies Verified] Objective: * Vitals:?Wt: 244 lbs, Ht: 71. 5 in, BMI:33.55 Index, BP: 00/00 mm Hg. * Examination: ???General Examination: ?GENERAL APPEARANCE:?pleasant, well nourished, well developed, in no acute distress.?EYES:?sclera non-icteric.?ORAL CAVITY:?mucosa moist.?NECK/THYROID:?no cervical lymphadenopathy, neck supple.?SKIN:?nonjaundiced, no spider angiomata.?HEART:?S1, S2 normal.?LUNGS:?clear to auscultation bilaterally.?ABDOMEN:?normal bowel sounds, no guarding or rigidity, no guarding or rigidity, no masses palpable, soft, nontender, nondistended.?EXTREMITIES:?no edema.?NEUROLOGIC:?alert and oriented.? Assessment: * Assessment: 1.?Encounter for other prepr ocedural examination - Z01.818 (Primary)?2.?Personal history of colonic polyps - Z86.010?3.?Colon cancer screening - Z12.11?4.?Family history of colon cancer - Z80.0?5.?Aspirin long-term use - Z79.82? Overall, Sohan appears ho te well. Given [...] 1 days, 1, Refills 0.?? * Procedure Codes:?3017F COLOR ECTAL CA SCREEN DOC [id number] TOBACCO NON-ESFLM2100 BP SCR NOT PRFRM REC REASON NOS * Preventive Medicine:? ??Counseling:?Care goal follow-up plan:?Above Normal BMI Follow-up?Giving encouragement to exercise,?BMI management provided?Yes.? * Follow Up:?prn * * Sign off status: Completed true * Provider:?Orlin Eastman MD Date:? 024 Generated for Shu stuart/Kobi/Hunter on:?06/29/2024 10:03 AM EDT History and Physical Notes * [...]
--- OUTSIDE RECORDS SUMMARY | 2024-06-29 10:03 | XMS_ITS | Patient Health Record ---
Author Organization [facility] Address [address] [place] [address] Care Team Providers Care Doorperson Name Role Phone Dagoberto Varela MD Primary Care Provider Orlin Muhammad Unavailable [phone] Allergies Allergen (clinical drug ingredient) Drug/Non Drug Allergy documented on EMR Reaction Allergy Type Onset Date Status Cortisone Unknown Drug Allergy Active Reason For Referral Referring Provider First Name Dagoberto Referring Provider Last Name Avery Referring Provider Speciality Internal M edicine Referred Organization [facility] Referred Provider Orlin Eastman Referred Address [address],[place], [place],[address], Referred Provider Specialty Gastroentero logy General Notes Caty Sinclair 024 04:26:56 PM EDT > requested an o blue referral from Dr. Varela's office for visit with Dr. Eastman on [phone] Referral Priority Routine Medications Medication SIG (Take, Route, Frequency, Duration) Notes Start Date End Date Status Ativan 1 MG take 1 on the morning of the colonoscopy shortly before leaving for the hospital Orally Once for 1 days 10/03/2023 Active Skelaxin Active Aspirin 81 QOD Active Multivitamin Active traMADol HCl 50 MG Oral for 30 Active Metaxalone 800 MG take 1 tablet by mouth twice a day Oral for 45 Skelaxin for his back Not-Taking Problems Problem Type SNOMED Code ICD Code Onset Dates Problem Status W/U Status Risk Notes Problem Colon cancer screening (764976249) Colon cancer screening (Z12.11) Active confirmed Problem History of polyp of colon (situation) (474996617) Personal history of colonic polyps (Z86.010) Active confirmed Problem Pre-procedure evaluation check (824235696) Encounter for other preprocedural examination (Z01.818) Active confirmed Problem Diverticular disease of colon (109091107) Diverticulosis of large intestine without perforation or abscess without bleeding (K57.30) Active confirmed Problem Long-term current use of aspirin (033525198979856 ) Aspirin long-term use (Z79.82) Active confirmed Problem Family History of Cancer of Colon (Situation) (360592390) Family history of colon cancer (Z80.0) Active confirmed Vital Signs Blood pressure diastolic 00 mm Hg 10/03/2023 Height 71.5 in 10/03/2023 Blood pressure systolic 00 mm Hg 10/03/2023 Weight 244 lbs 10/03/2023 BMI 33.55 kg/m2 10/03/2023 Encounters Encounter Location Date Provider Diagnosis [facility] [place] [address] [place] [phone] 02/06/2024 Orlin Jaren Colon cancer screeni ng Z12.11 ; Personal history of colonic polyps Z86.0100 ; Diverticulosis of large intestine without perforation or abscess without bleeding K57.30 and Other hemorrhoids K64.8 [facility] [address] [place] [address] 10/03/2023 Orlin Eastman Personal history of colonic [...] history of colonic polyps (ICD-10 - Z86.0100) 10/03/2023 Personal history of colonic polyps (ICD-10 [...] to keep you advised of his progress. 02/06/2024 Diverticulosis of large intestine without perforation or abscess without bleeding (ICD-10 - K57.30) 10/03/2023 Colon cancer screening (ICD-10 - Z12.11) [...] to keep you advised of his progress. 02/06/2024 Other hemorrhoids (ICD-10 - K64.8) 10/03/2023 Family history of colon cancer (ICD-10 [...] advised of his progress. Plan Of Treatment Future Test Test Name Order Date COLONOSCOPY 01/06/2014 COLONOSCOPY 10/03/2023 Insurance Providers Payer Name Payer Address Payer Phone Subscriber Number Group Number Insured Name Patient Relationship to Insured Coverage Start Date Coverage End Date [facility] [employer] [address] [place] [address] [id number] SOHAN BYRNE Self - patient is the insured Medical (General) History Medical History History ICD Code Denies AK,DM,CVA,Lung disease,renal dise ase Back pain--disc disease Asthma Colonoscopy 03/2014 with removal of a sm all tubular adenoma Surgical History Surgery Date(Month/Year)
--- OUTSIDE RECORDS SUMMARY | 2024-06-29 10:04 | XMS_ITS ---
Author Organization [facility] Address [address] [place] [address] Care Team Providers Care Cottage Attendant Name Role Phone Po Dagoberto GREEN Primary Care Provider Orlin Muhammad [phone] REASON FOR VISIT colon screening Problems Problem Type SNOMED Code ICD Code Onset Dates Problem Status W/U Status Risk Notes Problem Diverticular disease of colon (373276170) Diverticulosis of large intestine without perforation or abscess without bleeding (K57.30) Active confirmed Encounters Encounter Location Date Provider Diagnosis [facility] [place] [address] [place] [phone] 02/06/2024 Orlin Eastman Colon cancer scree vida [...] Notes * SOHAN BYRNEDOB:1965 (59 yo M)Acc No.[id number]:02/06/2024 COLON WITH MAC Patient:?SOHAN BYRNE Provider:?Orlin Eastman MD :1965???Age:58 Y???Sex:Male Loco e:02/06/2024 Address:[address] [place], [place] [id number] Pcp:Dagoberto Varela MD Subjective: * Chief Complaints: * ???1. Colon screening. * Medical History:? Objective: * Vitals:? Assessment: * Assessment: 1.?Colon cancer screening - Z12.11 (Primary)???2.?Personal history of colonic polyps - Z86.0100???3.?Diverticulosis of large intestine without perforation or abscess without bleeding - K57.30???4.?Other hemorrhoids - K64.8??? Plan: * Treatment: * Procedure Codes:?67485 DIAGN OSTIC COLONOSCOPY, Modifiers: 33 * * The named appointment provid er may or may not be the originator of this progress note, and it is not deemed complete until electronically signed by the appointment provider. Sign off status: Pending * Provider:?Orlin Eastman MD Date:? 024 Generated for Shu stuart/Kobi/eTransmitting on:?06/29/2024 10:03 AM EDT
[2024-06-29 11:10] LABS: Basophils Percent Auto 0.6 % (0-2); Eosinophils Absolute Auto 0.2 X10*3/uL (0.0-0.4); Eosinophils Percent Auto 2.2 % (0-4); Hematocrit 47.3 % (42.0-52.0); Hemoglobin 15.8 g/dl (14.0-18.0); Imm Gran Abs Auto 0.03 X10*3/uL (0.00-0.03); Imm Gran Pct Auto 0.4 % (0.0-0.4); Lymphocytes Absolute Auto 2.1 X10*3/uL (1.2-4.9); Mean Corpuscular HGB Conc 33.4 g/dl (31.0-36.0); Mean Corpuscular Hemoglobin 29.5 pg (27.0-33.0); Mean Corpuscular Volume 88.4 fL (80.0-98.0); Mean Platelet Volume 10.6 fL (9.4-12.4); Monocytes Absolute Auto 0.7 X10*3/uL (0.1-1.2); Monocytes Percent Auto 9.8 % (2-11); Neutrophils Absolute Auto 3.9 x10*3/uL (2.0-8.3); Platelet Count 252 X10*3/uL (160-400); Red Blood Count 5.35 X10*6/uL (4.60-5.80); Red Cell Distribution Width 13.1 % (11.0-16.0); White Blood Count 6.8 X10*3/uL (4.8-10.8)
[2024-06-29 12:16] LABS: Alanine Aminotransferase 38 U/L (0-40); Albumin Level 4.1 g/dL (3.5-5.0); Alkaline Phosphatase 85 U/L (39-117); Anion Gap 12 (12-20); Aspartate Amino Transferase 29 U/L (5-37); Bilirubin Total 0.3 mg/dL (0.0-1.0); Blood Urea Nitrogen 14 mg/dL (9-16); Calcium 9.4 mg/dL (8.4-10.2); Carbon Dioxide 27 mmol/L (22-29); Chloride 107 mmol/L (96-108); Cholesterol 220 mg/dL (<200); Estimated Glomerular Filt Rate > 60; Free T4 (Free Thyroxine) 1.09 ng/dL (0.71-1.85); Glucose Random 93 mg/dL (60-115); HDL Cholesterol 45 mg/dL (>40); LDL Cholesterol Calculated 133 mg/dL (<100); Potassium 4.3 mmol/L (3.3-5.1); Sodium 142 mmol/L (135-145); Total Protein 7.8 g/dL (6.5-8.0); Triglycerides 212 mg/dL (<150)
[2024-06-29 12:33] LABS: Folate > 20.0 ng/mL (> or = 4.0); Prostate Specific Antigen Scr 7.45 ng/mL (<0.05-4.0); Vitamin B12 529 pg/mL (200-900)
== END 2024-06-29 09:04 | disposition home or self-care (01) ==
LOC: HO.LAB 09:03
PROVIDERS: PCP Internal Medicine; Visit Provider Internal Medicine
DX: R10.32 Left lower quadrant pain (principal); E78.00 Pure hypercholesterolemia, unspecified; Z12.5 Encounter for screening for malignant neoplasm of prostate
CPT/HCPCS: 36415; 80053; 80061; 81003; 82607; 82746; 84153; 84439; 84443; 85025

== ENCOUNTER 2024-06-29 09:41 | Outpatient (AMB) | payer BC, SELFPAY ==
--- NOTE | 2024-06-29 09:59 | A.OFFPC_ITS ---
Vital Signs 06/29/24 10:00 Height 6 ft 1 in Weight 248 lb 6 oz BMI 32.8 BP 116/80 Blood Pressure Location Lt brachial Position Sitting Pulse 64 Pulse Source Pulse Oximeter Pulse Oximetry (%) 95 Oxygen Delivery Method Room Air Intake Visit Reasons: CLBP Rn Gyn Required: No Accompanied by: Self / Same As Patient Allergies cortisone Adverse Reaction (Mild, Verified 06/29/24 10:01) Itching Tobacco use date assessed: 06/29/24 Dental Screening Dental Screen Date: 06/29/24 Did you have a dental visit in the last 12 months?: No Did you have a dental problem in the last 6 months where you did not have access to dental care?: No Was dental information given to patient?: Patient has dentist [facility] Medical History Alcohol abuse Erectile dysfunction Hypercholesterolemia PTSD (post-traumatic stress disorder) Vitamin D deficiency Obesity (BMI 30-39.9) Asthma Low back pain Surgical History History of colonoscopy Family History Father Bone cancer Depression Mother Colon cancer Diabetes Stroke Myocardial infarction, acute, initial episode of care Social History Household Members: Spouse Housing: Apartment Are you a primary body care manager to a significant other at home: No Do you presently have visiting nurse or other home services: No Alcohol intake: former Patient Tobacco Use Status: Former Tobacco user Tobacco use type: Cigarette Years Smoked: stopped 2009 e-Cigarette/Vaping Use: Currently Using Second Hand Smoke Exposure: No service: No Current occupational status: retired Cognitive needs: No Hearing needs: No Vision needs: Yes Questionnaire PHQ-9 Over the last 2 weeks, how often have you been bothered by any of the following problems? 1. Little interest or pleasure in doing things: not at all 2. Feeling down, depressed, or hopeless: several days 3. Trouble falling or staying asleep, or sleeping too much: several days 4. Feeling tired or having little energy: not at all 5. Poor appetite or overeating: several days 6. Feeling bad about yourself - or that you are a failure or have let yourself or your family down: several days 7. Trouble concentrating on things, such as reading the newspaper or watching television: several days 8. Moving or speaking so slowly that other people could have noticed. Or the opposite - being so fidgety or restless that you have been moving around a lot more than usual: several days 9. Thoughts that you would be better off or of hurting yourself in some way: not at all Total score: 6 Depression Screening Interpretation: Positive Depression Screening Done: Yes Source: Developed by Drs. Orlin Dial, Alondra Helm, Darnell Snow and colleagues, with an educational lucas from [employer]. Thrive Questionnaire Date Thrive assessed: 06/29/24 I am a: Patient What is your living situation today?: I choose not to answer this question Within the past 12 months, did the food you bought not last and you didn't have the money to get more?: I choose not to answer this question Within the past 12 months, did you worry whether your food would run out before you got money to buy more?: I choose not to answer this question Do you have trouble paying for medicines?: I choose not to answer this question Do you have trouble getting transportation to medical appointments?: I choose not to answer this question Do you have trouble paying your heating and electricity bill?: I choose not to answer this question Do you have trouble taking care of your child, family member or friend?: I choose not to answer this question Do you have trouble with day-to-day activities such as bathing, preparing meals, shopping, managing finances, etc.?: I choose not to answer this question Are you currently unemployed and looking for a job?: I choose not to answer this question Are you interested in more education?: I choose not to answer this question Please select the resources that you would like help with: None Currently or been in a relationship where the following occur: No concerns reported THRIVE Score: 0 AUDIT C Alcohol Use Questionnaire (AUDIT-C) 1. How often do you have a drink containing alcohol?: Never 3. How often do you have six or more drinks on one occasion?: Never Total Score: 0 TANIYA-7 AMB Questionnaire TANIYA-7 Date TANIYA - 7 assessed: 06/29/24 Feeling nervous, anxious, or on edge: 0 = Not at all Not being able to stop or control worryin = Not at all Worrying too much about different things: 0 = Not at all Trouble relaxin = Not at all Being so restless that it is hard to sit still: 0 = Not at all Becoming easily annoyed or irritable: 0 = Not at all Feeling afraid as if something awful might happen: 0 = Not at all Total TANIYA-7 score (0-4 normal; 5-9 mild; 10-14 moderate; 15-21 severe): 0 Source: Developed by Drs. Orlin Dial, Alondra Helm, Darnell Snow and colleagues, with an educational lucas from [employer]. Physical exam (Primary Care) Vital Signs: Last Vital Signs Pulse 64 06/29/24 10:00 BP 116/80 06/29/24 10:00 Pulse Ox 95 06/29/24 10:00 Oxygen Delivery Method Room Air 06/29/24 10:00 BMI result Body Mass Index 32.8 Tobacco/Smoking Status: Tobacco use Status Tobacco use date assessed 06/29/24 06/29/24 10:03 Patient Tobacco Use Status Former Tobacco user 06/29/24 10:03 Tobacco use type Cigarette 06/29/24 10:03 e-Cigarette/Vaping Use Currently Using 06/29/24 10:03 PHQ-9: PHQ-9 Score PHQ-9: Total score 6 06/29/24 10:03 Depression Screening Interpretation: Positive Thrive Assessment: Date of Thrive Assessment Date Thrive assessed 06/29/24 06/29/24 10:03 Currently or been in a relationship where the following occur: No concerns reported Const General: alert; No acute distress Eyes Conjunctivae: conjunctivae normal Resp Auscultation: clear to auscultation bilaterally Cardio Rate: regular rate Rhythm: regular rhythm GI Inspection: Yes normal to inspection Extrem General: Yes normal to inspection and No edema Coding Level of Care Code Est Pt Level 4 (62189) Diagnoses Mild intermittent asthma without complication J45.20 Asthma severity: mild Asthma persistence: intermittent Asthma complication type: uncomplicated Obesity (BMI 30-39.9) E66.9 Hypercholesterolemia E78.00 Generalized anxiety disorder F41.1 Chronic low back pain without sciatica, unspecified back pain laterality M54.5; G89.29 Chronicity: chronic Back pain laterality: unspecified Sciatica presence: without sciatica LLQ pain R10.32 Assessment & Plan Assessment & Plan (1) Asthma: Code(s): J45.909 - Unspecified asthma, uncomplicated Category: Medical Qualifiers: Asthma severity: mild Asthma persistence: intermittent Asthma complication type: uncomplicated Qualified Code(s): J45.20 - Mild intermittent asthma, uncomplicated Plan: Stable not on any inhaler (2) Obesity (BMI 30-39.9): Code(s): E66.9 - Obesity, unspecified Category: Medical Plan: Diet and exercise (3) Hypercholesterolemia: Code(s): E78.00 - Pure hypercholesterolemia, unspecified Category: Medical Plan: Avoid fried foods, chicken skin, eggs, butter margarine, pastries and meat. Be it pork or beef they have a lot of cholesterol lab work is pending LDL goal of less than 130 and triglyceride of less than 150 (4) Generalized anxiety disorder: Comment: Declined referral for counseling Code(s): F41.1 - Generalized anxiety disorder Category: Medical Plan: Presently stable (5) Low back pain: Comment: Left paracentral disc herniation L5-S1 2009 Code(s): M54.5 - Low back pain Category: Medical Qualifiers: Chronicity: chronic Back pain laterality: unspecified Sciatica presence: without sciatica Qualified Code(s): M54.5 - Low back pain; G89.29 - Other chronic pain Plan: On tramadol p.r.n. (6) LLQ pain: Code(s): R10.32 - Left lower quadrant pain Category: Medical Plan History of Present Illness The patient is a 59-year-old male presenting for a follow-up visit regarding chronic condition management, including asthma, PTSD, hypercholesterolemia, generalized anxiety disorder, and chronic low back pain associated with obesity. His management plan includes ongoing strategies for cholesterol control through diet and exercise, with recent, yet pending, laboratory evaluations aimed at achieving specific lipid profile goals. Chronic low back pain is present, with reports of occasional radiating discomfort possibly extending to the testicular region, warranting consideration for hernia or nephrolithiasis, though no definitive diagnosis for these has been previously confirmed. His asthma maintenance does not necessitate active use of inhalers, indicating stable control of respiratory symptoms. The patient demonstrates awareness and concern for his anxiety and fears related to potential health issues, particularly the presence of kidney stones. Health Maintenance - Advised lipid management and dietary plan focusing on lowering LDL to below 130 mg/dL and triglycerides below 150 mg/dL. - Discussed the stability of asthma and need for respiratory health monitoring. - Acknowledged need for ongoing obesity management through diet and exercise. - Colonoscopy was performed in January 2024, with a recommendation for repeat testing in 5 years. Social History - Engages in physical activity, wear-adjusted due to weight concerns. - Reports stable family life with mention of familial support. - Expresses discomfort with needles, impacting willingness to perform diagnostic tests. Review of Systems - Genitourinary: Reports concern of potential crystalluria and mentions peculiar powdery appearance in urine. - Musculoskeletal: Reports episodic low back pain, potentially radiating to the testicular area. Physical Exam Results - Labs: Recent lipid panel conducted, results pending. Plan The patient's chronic low back pain will continue to be managed with tramadol, while concerns of potential nephrolithiasis warrant further assessment via urinalysis and potentially ultrasound, contingent upon findings of hematuria. Stable asthma management continues with no adjustments advised currently. Lipid profile results pending will help tailor the hypercholesterolemia management plan, while generalized anxiety disorder will be managed through supportive conversations and reassurance. Continuous monitoring of conditions and patient engagement in lifestyle modifications, particularly through diet and exercise, is emphasized. Patient was informed and verbally consented to the use of an ambient scribe for clinic note documentation during this visit. Discussion Notes I discussed the ongoing management strategies for the patient's chronic cond itions, including the stable asthma control and continuation of tramadol for low back pain. We reviewed his lipid panel management goals aimed at optimizing his cardiovascular risk profile, with pending labs to direct further action. Concerns around possible nephrolithiasis led to the decision to pursue a urinalysis before departure, with a follow-up ultrasound if indicated. The patient was reassured about his health status, though his fears of needles were acknowledged. I emphasized the importance of compliance with management strategies and future follow-up appointments to assess test outcomes and proactive health measures. Patient Instructions - Continue current medication regimen including tramadol for low back pain. - Schedule urinalysis before leaving. Potential follow-up ultrasound for kidney stones if needed. - Await lipid panel results for further instruction on managing hypercholesterolemia. - Maintain adherence to diet and exercise plan for obesity and cholesterol control. - Monitor any new or worsening symptoms and seek care if necessary. - Follow up with scheduled visits and lab assessments as directed. Orders: Orders AMB Urinalysis Automated Today R10.32 - Left lower quadrant pain, Z13.9 - Encounter for screening, unspecified
[2024-06-29 10:00] VITALS: BP 116/80; PULSE 64; O2SAT 95; BMI 32.8
== END 2024-06-29 10:40 | disposition home or self-care (01) ==
LOC: HO.HMCH 09:42
PROVIDERS: PCP Internal Medicine; Visit Provider Internal Medicine
DX: J45.20 Mild intermittent asthma, uncomplicated (principal); E66.9 Obesity, unspecified; Z68.32 Body mass index [BMI] 32.0-32.9, adult; E78.00 Pure hypercholesterolemia, unspecified; F41.1 Generalized anxiety disorder; M54.50 Low back pain, unspecified; G89.29 Other chronic pain; R10.32 Left lower quadrant pain

== ENCOUNTER 2024-08-04 08:56 | Outpatient (REF) | payer BC, SELFPAY ==
--- OUTSIDE RECORDS SUMMARY | 2024-08-04 09:29 | XMS_ITS ---
Author Organization [facility] Address [address] [place] [address] Care Team Providers Care Garment Alteration Examiner Name Role Phone Po Dagoberto GREEN Primary Care Provider Orlin Muhammad [phone] Allergies Allergen (clinical drug ingredient) Drug/Non Drug [...] Problem History of polyp of colon (situation) (834152098) Personal history of colonic polyps (Z86.010) Active confirmed Problem Colon cancer screening (554568754) Colon cancer screening (Z12.11) Active confirmed Problem Family History of Cancer of Colon (Situation) (400938570) Family history of colon cancer (Z80.0) Active confirmed Problem Long-term current use of aspirin (1167932050714 03) Aspirin long-term use (Z79.82) Active confirmed Problem Pre-procedure evaluation check (183080841) Encounter for other preprocedural examination (Z01.818) Active confirmed Vital Signs Blood pressure systolic 00 mm Hg 10/03/19 24 Blood pressure diastolic 00 mm Hg 024 Height 71.5 in 10/03/2023 Weight 244 lbs 10/03/2023 BMI 33.55 kg/m2 10/03/2023 Encounters Encounter Location Date Provider Diagnosis [facility] [address] [place] [address] 10/03/2023 Orlin Eastman Personal history of colonic [...] Notes * SOHAN BYRNEDOB:1965 (58 yo M)Acc No.[id number]:10/03/2023 Progress Notes Patient:?SOHAN BYRNE Provider:?Orlin Eastman MD :1965???Age:58 Y???Sex:Male Loco e:10/03/2023 Address:[address] [place], [place] [phone] Pcp:Dagoberto Varela MD Subjective: * Chief Complaints: [...] Procedure Codes:?3017F COLOR ECTAL CA SCREEN DOC [id number] TOBACCO NON-JGNWD7121 BP SCR NOT PRFRM REC REASON NOS * Preventive Medicine:? ??Counseling:?Care goal follow-up plan:?Above Normal BMI Follow-up?Giving encouragement to exercise,?BMI management provided?Yes.? * Follow Up:?prn * * Sign off status: Completed true * Provider:?Orlin Eastman MD Date:? 024 Generated for Shu stuart/Kobi/Hunter on:?08/04/2024 09:29 AM EDT History and Physical Notes * [...]
--- OUTSIDE RECORDS SUMMARY | 2024-08-04 09:30 | XMS_ITS ---
Author Organization [facility] Address [address] [place] [address] Care Team Providers Care Manager Instrumentation Name Role Phone Dagoberto Varela MD Primary Care Provider Orlin Muhammad [facility] [phone] REASON FOR VISIT COLON SCREENING Encounters Encounter Location Date Provider Diagnosis [facility] [place] [facility] [address] [place], [place] [phone] 01/30/2024 Orlin Eastman Plan Of Treatment No Information Progress Notes * SOHANDOB:1965 (59 yo M)Acc No.[id number]:01/30/2024 COLON WITH MAC Patient:?SOHAN Provider:?Orlin Eastman MD :1965???Age:58 Y???Sex:Male Loco e:01/30/2024 Address:[address] [place], [place] [id number] Pcp:Dagoberto Varela MD Subjective: * Chief Complaints: [...] MD Date:? 024 Generated for Shu stuart/Kobi/eTransmitting on:?08/04/2024 09:29 AM EDT
--- OUTSIDE RECORDS SUMMARY | 2024-08-04 09:30 | XMS_ITS | Patient Health Record ---
Author Organization [facility] Address [address] [place] [address] Care Team Providers Care Solar Sales Specialist Name Role Phone Dagoberto Varela MD Primary Care Provider Orlin Muhammad Unavailable [phone] Allergies Allergen (clinical drug ingredient) Drug/Non Drug Allergy documented on EMR Reaction Allergy Type Onset Date Status Cortisone Unknown Drug Allergy Active Reason For Referral Referring Provider First Name Dagoberto Referring Provider Last Name Avery Referring Provider Speciality Internal M edicine Referred Organization [facility] Referred Provider Orlin Eastman Referred Address [address] [facility] [address],[place], [place],[address], Referred Provider Specialty Gastroentero logy General Notes Caty Sinclair 024 04:26:56 PM EDT > requested an o blue referral from Dr. Varela's office for visit with Dr. Eastman on [phone] Referral Priority Routine Medications Medication SIG (Take, [...] Status Risk Notes Problem Colon cancer screening (604033462) Colon cancer screening (Z12.11) Active confirmed Problem History of polyp of colon (situation) (902583343) Personal history of colonic polyps (Z86.010) Active confirmed Problem Pre-procedure evaluation check (560875173) Encounter for other preprocedural examination (Z01.818) Active confirmed Problem Diverticular disease of colon (925539671) Diverticulosis of large intestine without perforation or abscess without bleeding (K57.30) Active confirmed Problem Long-term current use of aspirin (057279891410889 ) Aspirin long-term use (Z79.82) Active confirmed Problem Family History of Cancer of Colon (Situation) (788845225) Family history of colon cancer (Z80.0) Active confirmed Vital Signs Blood pressure diastolic 00 mm Hg 10/03/2023 Height 71.5 in 10/03/2023 Blood pressure systolic 00 mm Hg 10/03/2023 Weight 244 lbs 10/03/2023 BMI 33.55 kg/m2 10/03/2023 Encounters Encounter Location Date Provider Diagnosis [facility] [place] [facility] [address] [place] [phone] 02/06/2024 Orlin Jaren Colon cancer screeni ng Z12.11 ; Personal history of colonic polyps Z86.0100 ; Diverticulosis of large intestine without perforation or abscess without bleeding K57.30 and Other hemorrhoids K64.8 [facility] [address] [facility] [address] [place] [address] 10/03/2023 Orlin Eastman Personal history of colonic [...] Insured Coverage Start Date Coverage End Date [facility] [employer] [address] [place] [address] [id number] SOHAN BYRNE Self - patient is the insured Medical (General) History Medical History History ICD Code Denies NH,DM,CVA,Lung disease,renal dise ase Back pain--disc disease Asthma Colonoscopy 03/2014 with removal of a sm all tubular adenoma Surgical History Surgery Date(Month/Year)
--- OUTSIDE RECORDS SUMMARY | 2024-08-04 09:30 | XMS_ITS ---
Author Organization [facility] Address [address] [place] [address] Care Team Providers Care Obstetrics Gynecology Physician Name Role Phone Po Dagoberto GREEN Primary Care Provider Orlin Muhammad [phone] REASON FOR VISIT colon screening Problems Problem Type SNOMED Code ICD Code Onset Dates Problem Status W/U Status Risk Notes Problem Diverticular disease of colon (505455538) Diverticulosis of large intestine without perforation or abscess without bleeding (K57.30) Active confirmed Encounters Encounter Location Date Provider Diagnosis [facility] [place] [address] [place] [phone] 02/06/2024 Orlin Eastman Colon cancer scree vida [...] Notes * SOHAN BYRNEDOB:1965 (59 yo M)Acc No.[id number]:02/06/2024 COLON WITH MAC Patient:?SOHAN BYRNE Provider:?Orlin Eastman MD :1965???Age:58 Y???Sex:Male Loco e:02/06/2024 Address:[address] [place], [place] [phone] Pcp:Dagoberto Varela MD Subjective: * Chief Complaints: * ???1. Colon screening. * Medical History:? Objective: * Vitals:? Assessment: * Assessment: 1.?Colon cancer screening - Z12.11 (Primary)???2.?Personal history of colonic polyps - Z86.0100???3.?Diverticulosis of large intestine without perforation or abscess without bleeding - K57.30???4.?Other hemorrhoids - K64.8??? Plan: * Treatment: * Procedure Codes:?28007 DIAGN OSTIC COLONOSCOPY, Modifiers: 33 * * The named appointment provid er may or may not be the originator of this progress note, and it is not deemed complete until electronically signed by the appointment provider. Sign off status: Pending * Provider:?Orlin Eastman MD Date:? 024 Generated for Shu stuart/Kobi/eTransmitting on:?08/04/2024 09:29 AM EDT
[2024-08-04 10:26] LABS: PSA,Total (Free>4and<10) 5.75 ng/mL (0.00-4.00)
[2024-08-05 11:28] LABS: Free Prostate Spec Ag 0.8 ng/mL; Percent Free Prostate Spec Ag 15 % (calc) (>25); Prostate Specific Ag Total 5.5 ng/mL (< OR = 4.0)
== END 2024-08-04 08:57 | disposition home or self-care (01) ==
LOC: HO.LAB 08:56
PROVIDERS: PCP Internal Medicine; Visit Provider Internal Medicine
DX: R97.20 Elevated prostate specific antigen [PSA] (principal); Z12.5 Encounter for screening for malignant neoplasm of prostate
CPT/HCPCS: 36415; 84153; 84154

== ENCOUNTER 2024-10-04 10:22 | Outpatient (AMB) | payer BC, SELFPAY ==
--- NOTE | 2024-10-04 10:27 | MHC.OFFVIS ---
Intake Visit Reasons: elevated PSA Intake Note: New patient presents today for initial visit for elevated PSA 08/04 Total PSA: 5.75 Free PSA: 15 Urology Medication:Vitamin B12 Blood Thinner:Aspirin Antibiotic Allergies:None Allergies cortisone Adverse Reaction (Mild, Verified 10/04/24 10:35) Itching Medication List - Last Reconciled 10/04/24 by Jim Zurita MD ascorbate calcium (vitamin C) 500 mg PO DAILY aspirin 81 mg PO Q2D cyanocobalamin (vitamin B-12) 1,000 mcg PO DAILY finasteride (Proscar) 5 mg PO DAILY ketoconazole 2% 1 appl topical 2XW metaxalone 800 mg PO TID multivitamin 1 tab PO DAILY tramadol 50 mg PO Q8H 30 days HPI Comments Details: 10/04/24-- - The patient is a 59-year-old male presenting with elevated Prostate-Specific Antigen (PSA) levels. - PSA levels were initially measured at 7.45 ng/mL on June 29, 2024, and subsequently decreased to 5.75 ng/mL on August 04, 2024. - The patient has no known family history of prostate cancer, but there is a family history of other cancers in his father, including bone, and colon cancer. - He denies any obstructive urinary symptoms, states he feels that he has a normal flow, nocturia x 1 per night. - Office urinalysis conducted today was negative for abnormalities. Results - Labs: PSA levels were 7.45 ng/mL on June 29, 2024, and 5.75 ng/mL on August 04, 2024. - Tests: Office urinalysis today was negative for abnormalities. Prostate examination: No suspicious hard nodules, smooth moderately enlarged Discussion Notes I discussed with the patient that his PSA levels, although elevated, have decreased from 7.45 ng/mL to 5.75 ng/mL, which is a positive sign. I explained that PSA can be elevated due to benign prostatic hyperplasia or prostate cancer. Given the decrease, I recommended repeating the PSA test in four months and starting proscar 5 mg daily. I also advised an ultrasound of the prostate, kidneys, and bladder for comprehensive evaluation. The patient was informed about the potential need for a biopsy if the PSA does not continue to decrease. We discussed the importance of monitoring and follow-up, and I provided instructions for the upcoming blood test, including fasting and abstaining from sexual activity for two days prior. [facility] Medical History Alcohol abuse Erectile dysfunction Hypercholesterolemia PTSD (post-traumatic stress disorder) Vitamin D deficiency Obesity (BMI 30-39.9) Asthma Low back pain Surgical History History of colonoscopy Family History Father Bone cancer Depression Mother Colon cancer Diabetes Stroke Myocardial infarction, acute, initial episode of care Social History Household Members: Spouse Housing: Apartment Are you a primary primary care physician to a significant other at home: No Do you presently have visiting nurse or other home services: No Alcohol intake: former Patient Tobacco Use Status: Former Tobacco user Tobacco use type: Cigarette Years Smoked: stopped 2009 e-Cigarette/Vaping Use: Currently Using Second Hand Smoke Exposure: No service: No Current occupational status: retired Cognitive needs: No Hearing needs: No Vision needs: Yes Review of Systems Const All systems reviewed & are unremarkable except as noted in HPI and below Reports no additional complaints Eyes Reports no additional complaints ENT Reports no additional complaints Card Reports no additional complaints Resp Reports no additional complaints GI Reports no additional complaints Reports as per HPI Musc Reports no additional complaints Skin/Breast Reports system reviewed and no additional complaints, except as documented Neuro Reports no additional complaints Psych Reports no additional complaints Endo Reports no additional complaints Cornelio/Lymph Reports no additional complaints Aller/Immun Reports no additional complaints Physical Exam Const General: healthy appearing, no acute distress and well developed Orientation/consciousness: patient oriented x3 HEENT Head: Yes normocephalic and Yes atraumatic Eyes Conjunctivae: conjunctivae normal Neck Neck: Yes normal visual inspection Chest Chest palpation & inspection: normal inspection of the chest Resp Effort & Inspection: normal respiratory effort Cardio Rate: regular rate GI Inspection: Yes normal to inspection Other: Prostate Exam: No suspicious hard nodules, smooth moderately enlarged Penis: normal penis and circumcised Scrotum: scrotum normal Neuro General: patient oriented x3 Psych Appearance: grossly normal Affect: normal affect Assessment & Plan Assessment & Plan (1) PSA elevation: Code(s): R97.20 - Elevated prostate specific antigen [PSA] Category: Medical (2) BPH (benign prostatic hyperplasia): Code(s): N40.0 - Benign prostatic hyperplasia without lower urinary tract symptoms Category: Medical Plan Plan - Start proscar 5 mg daily - Repeat PSA test in four months - Conduct an ultrasound of the prostate, kidneys, and bladder - Consider prostate biopsy if PSA levels do not decrease further. - Schedule follow-up appointment in four months Orders: Orders US retroperitoneal comp 1 Month N40.0 - Benign prostatic hyperplasia without lower urinary tract symptoms PSA,Total (Free>4and<10) 14 Weeks N40.0 - Benign prostatic hyperplasia without lower urinary tract symptoms, R97.20 - Elevated prostate specific antigen [PSA] Medications: New finasteride (Proscar) 5 mg PO DAILY 90 tabs 3RF Patient Instructions: The patient had an opportunity to ask questions regarding treatment plan. The patient expressed understanding and agreement with the above treatment plan. The patient is aware they should contact our office by phone for worsening of their current condition or the appearance of new symptoms. Compliance is encouraged with any medications and followup testing that is ordered. It is a privilege to be allowed the opportunity to participate in the urologic care of your patient. If you have any questions or concerns regarding treatment for the above conditions please do not hesitate to contact me. The office telephone contact is [phone]. This note is constructed in part using voice recognition software. While every effort has been made to ensure accuracy junior sales representative errors may have been included. Yours sincerely, Jim Zurita MD Scribe Plan - Not visible on output: Patient was informed and verbally consented to the use of an ambient scribe for clinic note documentation during this visit. Coding Level of Care Code New Pt Level 4 (52742) Diagnoses PSA elevation R97.20 BPH (benign prostatic hyperplasia) N40.0
--- OUTSIDE RECORDS SUMMARY | 2024-10-04 11:34 | XMS_ITS ---
Author Organization [facility] Address [address] [place] [address] Care Team Providers Care Engraver Automatic Name Role Phone Po Dagoberto GREEN Primary Care Provider Orlin Muhammad [phone] Allergies Allergen (clinical drug ingredient) Drug/Non Drug [...] Problem History of polyp of colon (situation) (382781993) Personal history of colonic polyps (Z86.010) Active confirmed Problem Colon cancer screening (908544640) Colon cancer screening (Z12.11) Active confirmed Problem Family History of Cancer of Colon (Situation) (312231146) Family history of colon cancer (Z80.0) Active confirmed Problem Long-term current use of aspirin (9963176152063 03) Aspirin long-term use (Z79.82) Active confirmed Problem Pre-procedure evaluation check (809657274) Encounter for other preprocedural examination (Z01.818) Active confirmed Vital Signs Blood pressure systolic 00 mm Hg 10/03/19 24 Blood pressure diastolic 00 mm Hg 024 Height 71.5 in 10/03/2023 Weight 244 lbs 10/03/2023 BMI 33.55 kg/m2 10/03/2023 Encounters Encounter Location Date Provider Diagnosis [facility] [address] [place] [address] 10/03/2023 Orlin Eastman Personal history of colonic [...] Notes * SOHAN BYRNEDOB:1965 (58 yo M)Acc No.[id number]:10/03/2023 Progress Notes Patient:?SOHAN BYRNE Provider:?Orlin Eastman MD :1965???Age:58 Y???Sex:Male Loco e:10/03/2023 Address:[address] [place], [place] [phone] Pcp:Dagoberto Varela MD Subjective: * Chief Complaints: [...] Procedure Codes:?3017F COLOR ECTAL CA SCREEN DOC PIY5785P TOBACCO NON-VYYKW7666 BP SCR NOT PRFRM REC REASON NOS * Preventive Medicine:? ??Counseling:?Care goal follow-up plan:?Above Normal BMI Follow-up?Giving encouragement to exercise,?BMI management provided?Yes.? * Follow Up:?prn * * Sign off status: Completed true * Provider:?Orlin Eastman MD Date:? 024 Generated for Shu stuart/Kobi/Hunter on:?10/04/2024 11:34 AM EDT History and Physical Notes * [...]
== END 2024-10-04 11:00 | disposition home or self-care (01) ==
LOC: HO.HUSH 10:23
PROVIDERS: PCP Internal Medicine; Visit Provider Urology
DX: R97.20 Elevated prostate specific antigen [PSA] (principal); N40.0 Benign prostatic hyperplasia without lower urinary tract symptoms; Z13.9 Encounter for screening, unspecified
CPT/HCPCS: 99204

== ENCOUNTER → 2024-10-04 10:22 | Outpatient (BNVA) | payer BC, SELFPAY | PROVIDERS: PCP Internal Medicine; Visit Provider Urology | DX: R97.20 Elevated prostate specific antigen [PSA] (principal); N40.0 Benign prostatic hyperplasia without lower urinary tract symptoms | CPT/HCPCS: 81003 ==

== ENCOUNTER 2024-10-07 09:17 | Outpatient (AMB) | payer BC, SELFPAY ==
--- OUTSIDE RECORDS SUMMARY | 2023-10-03 10:00 | XMS_ITS ---
Author Organization [facility] Address [address] [place] [address] Care Team Providers Care Application Coordinator Name Role Phone Po Dagoberto GREEN Primary Care Provider Orlin Muhammad [phone] Allergies Allergen (clinical drug ingredient) Drug/Non Drug Allergy documented on EMR Reaction Allergy Type Onset Date Status Cortisone Unknown Drug Allergy Active REASON FOR VISIT Patient presents today for a screening colon Medications Medication SIG (Take, Route, Frequency, Duration) Notes Start Date End Date Status Ativan 1 MG take 1 on the morning of the colonoscopy shortly before leaving for the hospital Orally Once for 1 days 10/03/2023 Active traMADol HCl 50 MG Oral for 30 Active Metaxalone 800 MG take 1 tablet by mouth twice a day Oral for 45 Skelaxin for his back Not-Taking Skelaxin Active Aspirin 81 QOD Active Multivitamin Active Problems Problem Type SNOMED Code ICD Code Onset Dates Problem Status W/U Status Risk Notes Problem History of polyp of colon (situation) (293334410) Personal history of colonic polyps (Z86.010) Active confirmed Problem Colon cancer screening (647087186) Colon cancer screening (Z12.11) Active confirmed Problem Family History of Cancer of Colon (Situation) (815197076) Family history of colon cancer (Z80.0) Active confirmed Problem Long-term current use of aspirin (0849022242009 03) Aspirin long-term use (Z79.82) Active confirmed Problem Pre-procedure evaluation check (853338923) Encounter for other preprocedural examination (Z01.818) Active confirmed Vital Signs Blood pressure systolic 00 mm Hg 10/03/19 24 Blood pressure diastolic 00 mm Hg 024 Height 71.5 in 10/03/2023 Weight 244 lbs 10/03/2023 BMI 33.55 kg/m2 10/03/2023 Encounters Encounter Location Date Provider Diagnosis [facility] [address] [place] [address] 10/03/2023 Orlin Eastman Personal history of colonic polyps Z86.010 ; Encounter for other preprocedural examination Z01.818 ; Colon cancer screening Z12.11 ; Family history of colon cancer Z80.0 and Aspirin long-term use Z79.82 Assessments Encounter Date Diagnosis (ICD Code) Assessment Notes Treatment Notes Treatment Clinical Notes Section Notes 10/03/2023 Personal history of colonic polyps (ICD-10 - Z86.010) Overall, Sohan appears quite well. Given his age, his good clinical appearance, his history of a tubular adenoma, his family history of colon cancer, and his last colonoscopy being well over 5 years ago, I did recommend a followup colonoscopy for further screening purposes. We did review the rationale for this in regard to colon cancer prevention. Full consent was obtained from him for this, including risks of bleeding and perforation. The procedure will be done with monitored anesthesia care. He was given the below instructions regarding adjustment of his medications for the procedure. Of note, Sohan does have anxiety about the procedure and asked for a sedative to take at home before leaving the house. In 2013 I gave him a prescription for a 1 mg Ativan which worked well for him. I shall give him the same prescription to take before leaving his house for his colonoscopy later this year. Sohan was comfortable with this plan. Thank you again for allowing me to participate in Sohan's care. I shall continue to keep you advised of his progress. 10/03/2023 Encounter for other preprocedural examination (ICD-10 - Z01.818) Overall, Sohan appears quite well. Given his age, his good clinical appearance, his history of a tubular adenoma, his family history of colon cancer, and his last colonoscopy being well over 5 years ago, I did recommend a followup colonoscopy for further screening purposes. We did review the rationale for this in regard to colon cancer prevention. Full consent was obtained from him for this, including risks of bleeding and perforation. The procedure will be done with monitored anesthesia care. He was given the below instructions regarding adjustment of his medications for the procedure. Of note, Sohan does have anxiety about the procedure and asked for a sedative to take at home before leaving the house. In 2013 I gave him a prescription for a 1 mg Ativan which worked well for him. I shall give him the same prescription to take before leaving his house for his colonoscopy later this year. Sohan was comfortable with this plan. Thank you again for allowing me to participate in Sohan's care. I shall continue to keep you advised of his progress. 10/03/2023 Colon cancer screening (ICD-10 - Z12.11) Stop aspirin for 1 week before the colonoscopy Overall, Sohan appears quite well. Given his age, his good clinical appearance, his history of a tubular adenoma, his family history of colon cancer, and his last colonoscopy being well over 5 years ago, I did recommend a followup colonoscopy for further screening purposes. We did review the rationale for this in regard to colon cancer prevention. Full consent was obtained from him for this, including risks of bleeding and perforation. The procedure will be done with monitored anesthesia care. He was given the below instructions regarding adjustment of his medications for the procedure. Of note, Sohan does have anxiety about the procedure and asked for a sedative to take at home before leaving the house. In 2013 I gave him a prescription for a 1 mg Ativan which worked well for him. I shall give him the same prescription to take before leaving his house for his colonoscopy later this year. Sohan was comfortable with this plan. Thank you again for allowing me to participate in Sohan's care. I shall continue to keep you advised of his progress. 10/03/2023 Family history of colon cancer (ICD-10 - Z80.0) Overall, Sohan appears quite well. Given his age, his good clinical appearance, his history of a tubular adenoma, his family history of colon cancer, and his last colonoscopy being well over 5 years ago, I did recommend a followup colonoscopy for further screening purposes. We did review the rationale for this in regard to colon cancer prevention. Full consent was obtained from him for this, including risks of bleeding and perforation. The procedure will be done with monitored anesthesia care. He was given the below instructions regarding adjustment of his medications for the procedure. Of note, Sohan does have anxiety about the procedure and asked for a sedative to take at home before leaving the house. In 2013 I gave him a prescription for a 1 mg Ativan which worked well for him. I shall give him the same prescription to take before leaving his house for his colonoscopy later this year. Sohan was comfortable with this plan. Thank you again for allowing me to participate in Sohan's care. I shall continue to keep you advised of his progress. 10/03/2023 Aspirin long-term use (ICD-10 - Z79.82) Overall, Sohan appears quite well. Given his age, his good clinical appearance, his history of a tubular adenoma, his family history of colon cancer, and his last colonoscopy being well over 5 years ago, I did recommend a followup colonoscopy for further screening purposes. We did review the rationale for this in regard to colon cancer prevention. Full consent was obtained from him for this, including risks of bleeding and perforation. The procedure will be done with monitored anesthesia care. He was given the below instructions regarding adjustment of his medications for the procedure. Of note, Sohan does have anxiety about the procedure and asked for a sedative to take at home before leaving the house. In 2013 I gave him a prescription for a 1 mg Ativan which worked well for him. I shall give him the same prescription to take before leaving his house for his colonoscopy later this year. Sohan was comfortable with this plan. Thank you again for allowing me to participate in Sohan's care. I shall continue to keep you advised of his progress. Plan Of Treatment Medication Medication Name Sig Start Date Stop Date Notes Ativan 1 MG take 1 on the mornin g of the colonoscopy shortly before leaving for the hospital Orally Once for 1 days 10/03/2023 Treatment Notes Assessment Notes Colon cancer screening Stop aspirin for 1 week before the colonoscopy Future Test Test Name Order Date COLONOSCOPY 10/03/2023 Next Appt Details Follow Up: prn, Reason: Progress Notes * SOHAN BYRNEDOB:1965 (58 yo M)Acc No.[id number]:10/03/2023 Progress Notes Patient: SOHAN RICHEY Provider: Adrian Eastman MD :1965 A ge:58 Y S ex:Male Date:10/03/2023 Address:[address] [place], [place] [id number] Pcp:Dagoberto Varela MD Subjective: * Chief Complaints: * P atalley presents today for a screening colon * HPI: i ncontinence: I saw Sohan in the office today for evaluation of his personal history of a tubular adenoma of the colon, his family history of colon cancer, and his need for colorectal cancer screening. I last saw Sohan in March of 2014, at which time he underwent a screening colonoscopy with removal of a small tubular adenoma. He was sent a recall letter in 2019 to schedule a repeat colonoscopy but never called us to schedule an appointment. In any event he feels very well. He enjoys a good appetite, without any significant heartburn or dysphagia. His bowel movements have been regular and without any signs of bleeding. He denies abdominal pain, jaundice, nor any unintentional weight loss. His family history is notable for his mother having had colon cancer in her 60s and his father having had either colon cancer or some other GI malignancy in his 60s as well. * ROS: G eneral/Constitutional: Change in appetite d enies. C hills d enies. F atigue d enies. O phthalmologic: Comments a ll negative. E NT: Comments a ll negative. R espiratory: hemoptysis d enies. C ough d enies. ? C ardiovascular: Chest pain d enies. O rthopnea d enies. ? G astrointestinal: Comments S ee HPI for details. G enitourinary: Hematuria d enies. D ysuria d enies. ? M usculoskeletal: Painful joints H pérez has pain in his knees and back. W eakness d enies. S kin: Itching d enies. R kaz d enies. N eurologic: Headache d enies. S eizures d enies. ? P sychiatric: Comments a ll negative. * Medical History: * Surgical History: D enies Past Surgical History * Hospitalization/Major Diagno stic Procedure: N o Hospitalization History. * Family History: F ather: , at age age 64, diagnosed with Colon cancer. M other: , at age 64, diagnosed with Colon cancer. S iblings: alive, colon polyp removed. * Social History: T obacco Use: T obacco Use/Smoking A re you a: former smoker , How long has it been since you last smoked?: 1-5 years. D rugs/Alcohol: A lcohol Screen P oints: 0, Interpretation: Negative. M iscellaneous: M arital status: 2023. Occupation: disabled from his back. N onsmoker since 2012; no alcohol. * Medications: T akingSkelaxin Aspirin 81 , Notes: QODMultivitamin traMADol HCl 50 MG Tablet Oral Taking Skelaxin Taking Aspirin 81 , Notes: QODTaking Multivitamin Taking traMADol HCl 50 MG Tablet Oral Not-Taking/PRNMetaxalone 800 MG Tablet take 1 tablet by mouth twice a day Oral , Notes: Skelaxin for his backNot-Taking/PRN Metaxalone 800 MG Tablet take 1 tablet by mouth twice a day Oral , Notes: Skelaxin for his backDiscontinuedMoviPrep 100 GM Solution as directed Orally as directedPercocet 5-325 MG Tablet 1 tablet as needed Orally every 6 hrs, Notes: not daily--for back painMedication List reviewed and reconciled with the patientDiscontinued MoviPrep 100 GM Solution as directed Orally as directedDiscontinued Percocet 5-325 MG Tablet 1 tablet as needed Orally every 6 hrs, Notes: not daily--for back painMedication List reviewed and reconciled with the patient * Allergies: C ortisoneyes[Allergies Verified] Objective: * Vitals: W t: 244 lbs, Ht: 71.5 in, BMI:33.55 Index, BP: 00/00 mm Hg. * Examination: G eneral Examination: GENERAL APPEARANCE: p leasant, well nourished, well developed, in no acute distress. EYES: s clera non-icteric. ORAL CAVITY: m ucosa moist. NECK/THYROID: n o cervical lymphadenopathy, neck supple.? SKIN: n onjaundiced, no spider angiomata. HEART: S 1, S2 normal. LUNGS: c lear to auscultation bilaterally. ABDOMEN: n ormal bowel sounds, no guarding or rigidity, no guarding or rigidity, no masses palpable, soft, nontender, nondistended. EXTREMITIES: n o edema. NEUROLOGIC: a lert and oriented. Assessment: * Assessment: 1. E ncounter for other preprocedural examination - Z01.818 (Primary) 2 . P ersonal history of colonic polyps - Z86.010 3 . C olon cancer screening - Z12.11 4 . F amily history of colon cancer - Z80.0 5 . A spirin long-term use - Z79.82 Overall, Sohan appears ho te well. Given his age, his good clinical appearance, his history of a tubular adenoma, his family history of colon cancer, and his last colonoscopy being well over 5 years ago, I did recommend a followup colonoscopy for further screening purposes. We did review the rationale for this in regard to colon cancer prevention. Full consent was obtained from him for this, including risks of bleeding and perforation. The procedure will be done with monitored anesthesia care. He was given the below instructions regarding adjustment of his medications for the procedure. Of note, Sohan does have anxiety about the procedure and asked for a sedative to take at home before leaving the house. In 2013 I gave him a prescription for a 1 mg Ativan which worked well for him. I shall give him the same prescription to take before leaving his house for his colonoscopy later this year. Sohan was comfortable with this plan. Thank you again for allowing me to participate in Sohan's care. I shall continue to keep you advised of his progress. Plan: * Treatment: 2.?Colon cancer screening?Procedure: COLONOSCOPY (Ordered for 10/03/2023)* with MAC Notes: Stop aspirin for 1 week before the colonoscopy??3.?Family history of colon cancer?Procedure: COLONOSCOPY (Ordered for 10/03/2023)* with MAC 4.?Others? Start Ativan Tablet, 1 MG, take 1 on the morning of the colonoscopy shortly before leaving for the hospital, Orally, Once, 1 days, 1, Refills 0.?? * Procedure Codes: 3 017F COLORECTAL CA SCREEN DOC [id number] TOBACCO NON-DHAQP3194 BP SCR NOT PRFRM REC REASON NOS * Preventive Medicine: Counseling: C are goal follow-up plan: A horace Normal BMI Follow-up G iving encouragement to exercise, B [place] management provided Y es. * Follow Up: p rn * * Sign off status: Completed true * Provider: Adrian Eastman MD Date: 0 10/03/2023 Generated for Shu stuart/Kobi/Vinoditting on: 0 10/07/2024 09:55 AM EDT History and Physical Notes * HPI (History of Present Illness) Category Sub-Category Detail Notes Category Not es incontinence I saw Sohan in the office today for evaluation of his personal history of a tubular adenoma of the colon, his family history of colon cancer, and his need for colorectal cancer screening. I last saw Sohan in March of 2014, at which time he underwent a screening colonoscopy with removal of a small tubular adenoma. He was sent a recall letter in 2019 to schedule a repeat colonoscopy but never called us to schedule an appointment. In any event he feels very well. He enjoys a good appetite, without any significant heartburn or dysphagia. His bowel movements have been regular and without any signs of bleeding. He denies abdominal pain, jaundice, nor any unintentional weight loss. His family history is notable for his mother having had colon cancer in her 60s and his father having had either colon cancer or some other GI malignancy in his 60s as well. Examination Category Sub-Category Detail Notes Category Not es General Examination GENERAL APPEARANCE: pleasant , well nourished, well developed, in no acute distress HEAD: EYES: sclera non-icteric EARS: NOSE: THROAT: NECK/THYROID: no cervical lymphade nopathy, neck supple HEART: S1, S2 normal CHEST: LUNGS: clear to auscultatio n bilaterally ABDOMEN: normal bowel sounds, no guarding or rigidity, no guarding or rigidity, no masses palpable, soft, nontender, nondistended NEUROLOGIC: alert and oriented SKIN: nonjaundiced, no spi seven angiomata EXTREMITIES: no edema PERIPHERAL PULSES: BACK: BREASTS: MUSCULOSKELETAL: MALE GENITOURINARY: LYMPH NODES: RECTAL EXAM: FEMALE GENITOURINARY: ORAL CAVITY: mucosa moist
[2024-10-07 09:21] VITALS: BP 118/78; PULSE 69; O2SAT 98; BMI 31.5
--- NOTE | 2024-10-07 09:21 | A.OFFPC_ITS ---
Vital Signs 10/07/24 09:21 Height 6 ft 1 in Weight 239 lb BMI 31.5 BP 118/78 Blood Pressure Location Lt brachial Position Sitting Pulse 69 Pulse Source Pulse Oximeter Pulse Oximetry (%) 98 Oxygen Delivery Method Room Air Intake Visit Reasons: CLBP Security Investigator Required: No Accompanied by: Self / Same As Patient Allergies cortisone Adverse Reaction (Mild, Verified 10/07/24 09:22) Itching Tobacco use date assessed: 10/07/24 Dental Screening Dental Screen Date: 10/07/24 Did you have a dental visit in the last 12 months?: No Did you have a dental problem in the last 6 months where you did not have access to dental care?: No Was dental information given to patient?: Patient has dentist [facility] Medical History Alcohol abuse Erectile dysfunction Hypercholesterolemia PTSD (post-traumatic stress disorder) Vitamin D deficiency Obesity (BMI 30-39.9) Asthma Low back pain Surgical History History of colonoscopy Family History Father Bone cancer Depression Mother Colon cancer Diabetes Stroke Myocardial infarction, acute, initial episode of care Social History Household Members: Spouse Housing: Apartment Are you a primary resident care associate to a significant other at home: No Do you presently have visiting nurse or other home services: No Alcohol intake: former Patient Tobacco Use Status: Former Tobacco user Tobacco use type: Cigarette Years Smoked: stopped 2009 e-Cigarette/Vaping Use: Currently Using Second Hand Smoke Exposure: No service: No Current occupational status: retired Cognitive needs: No Hearing needs: No Vision needs: Yes Questionnaire PHQ-9 Over the last 2 weeks, how often have you been bothered by any of the following problems? 1. Little interest or pleasure in doing things: not at all 2. Feeling down, depressed, or hopeless: several days 3. Trouble falling or staying asleep, or sleeping too much: several days 4. Feeling tired or having little energy: not at all 5. Poor appetite or overeating: several days 6. Feeling bad about yourself - or that you are a failure or have let yourself or your family down: several days 7. Trouble concentrating on things, such as reading the newspaper or watching television: several days 8. Moving or speaking so slowly that other people could have noticed. Or the opposite - being so fidgety or restless that you have been moving around a lot more than usual: several days 9. Thoughts that you would be better off or of hurting yourself in some way: not at all Total score: 6 Depression Screening Interpretation: Positive Depression Screening Done: Yes Source: Developed by Drs. Orlin Dial, Alondra Helm, Darnell Snow and colleagues, with an educational lucas from [employer]. Thrive Questionnaire Date Thrive assessed: 10/07/24 I am a: Patient What is your living situation today?: I choose not to answer this question Within the past 12 months, did the food you bought not last and you didn't have the money to get more?: I choose not to answer this question Within the past 12 months, did you worry whether your food would run out before you got money to buy more?: I choose not to answer this question Do you have trouble paying for medicines?: I choose not to answer this question Do you have trouble getting transportation to medical appointments?: I choose not to answer this question Do you have trouble paying your heating and electricity bill?: I choose not to answer this question Do you have trouble taking care of your child, family member or friend?: I choose not to answer this question Do you have trouble with day-to-day activities such as bathing, preparing meals, shopping, managing finances, etc.?: I choose not to answer this question Are you currently unemployed and looking for a job?: I choose not to answer this question Are you interested in more education?: I choose not to answer this question Please select the resources that you would like help with: None Currently or been in a relationship where the following occur: No concerns reported THRIVE Score: 0 AUDIT C Alcohol Use Questionnaire (AUDIT-C) 1. How often do you have a drink containing alcohol?: Never 3. How often do you have six or more drinks on one occasion?: Never Total Score: 0 TANIYA-7 AMB Questionnaire TANIYA-7 Date TANIYA - 7 assessed: 10/07/24 Feeling nervous, anxious, or on edge: 0 = Not at all Not being able to stop or control worryin = Not at all Worrying too much about different things: 0 = Not at all Trouble relaxin = Not at all Being so restless that it is hard to sit still: 0 = Not at all Becoming easily annoyed or irritable: 0 = Not at all Feeling afraid as if something awful might happen: 0 = Not at all Total TANIYA-7 score (0-4 normal; 5-9 mild; 10-14 moderate; 15-21 severe): 0 Source: Developed by Drs. Orlin Dial, Alondra Helm, Darnell Snow and colleagues, with an educational lucas from [employer]. Physical exam (Primary Care) Vital Signs: Last Vital Signs Pulse 69 10/07/24 09:21 BP 118/78 10/07/24 09:21 Pulse Ox 98 10/07/24 09:21 Oxygen Delivery Method Room Air 10/07/24 09:21 BMI result Body Mass Index 31.5 Tobacco/Smoking Status: Tobacco use Status Tobacco use date assessed 10/07/24 10/07/24 09:24 Patient Tobacco Use Status Former Tobacco user 10/07/24 09:24 Tobacco use type Cigarette 10/07/24 09:24 e-Cigarette/Vaping Use Currently Using 10/07/24 09:24 PHQ-9: PHQ-9 Score PHQ-9: Total score 6 10/07/24 09:51 Depression Screening Interpretation: Positive Thrive Assessment: Date of Thrive Assessment Date Thrive assessed 10/07/24 10/07/24 09:24 Currently or been in a relationship where the following occur: No concerns reported Const General: alert; No acute distress Eyes Conjunctivae: conjunctivae normal Resp Auscultation: clear to auscultation bilaterally Cardio Rate: regular rate Rhythm: regular rhythm GI Inspection: Yes normal to inspection Extrem General: Yes normal to inspection and No edema Coding Level of Care Code Est Pt Level 4 (80199) Diagnoses Mild intermittent asthma without complication J45.20 Asthma complication type: uncomplicated Asthma persistence: intermittent Asthma severity: mild Chronic low back pain without sciatica, unspecified back pain laterality M54.5; G89.29 Back pain laterality: unspecified Chronicity: chronic Sciatica presence: without sciatica PSA elevation R97.20 BPH (benign prostatic hyperplasia) N40.0 Obesity (BMI 30-39.9) E66.9 Hypercholesterolemia E78.00 Generalized anxiety disorder F41.1 Assessment & Plan Assessment & Plan (1) Asthma: Code(s): J45.909 - Unspecified asthma, uncomplicated Category: Medical Qualifiers: Asthma complication type: uncomplicated Asthma persistence: intermittent Asthma severity: mild Qualified Code(s): J45.20 - Mild intermittent asthma, uncomplicated Plan: Patient is doing good without inhalers (2) Low back pain: Comment: Left paracentral disc herniation L5-S1 2009 Code(s): M54.5 - Low back pain Category: Medical Qualifiers: Back pain laterality: unspecified Chronicity: chronic Sciatica presence: without sciatica Qualified Code(s): M54.5 - Low back pain; G89.29 - Other chronic pain Plan: Continue with being active and pain medication as needed (3) PSA elevation: Code(s): R97.20 - Elevated prostate specific antigen [PSA] Category: Medical Plan: Patient is being followed up by Urology and continuing to monitor PSA numbers as well as an ultrasound requested (4) BPH (benign prostatic hyperplasia): Code(s): N40.0 - Benign prostatic hyperplasia without lower urinary tract symptoms Category: Medical Plan: Patient has been placed on Proscar (5) Obesity (BMI 30-39.9): Code(s): E66.9 - Obesity, unspecified Category: Medical Plan: Diet and exercise noted weight loss (6) Hypercholesterolemia: Code(s): E78.00 - Pure hypercholesterolemia, unspecified Category: Medical Plan: Avoid fried foods, chicken skin, eggs, butter margarine, pastries and meat. Be it pork or beef they have a lot of cholesterol LDL goal of less than 130 and triglyceride of less than 150 (7) Generalized anxiety disorder: Comment: Declined referral for counseling Code(s): F41.1 - Generalized anxiety disorder Category: Medical Plan: Continue with present therapy. Plan History of Present Illness The patient is a 59-year-old male presenting for follow-up of multiple chronic conditions including obesity, chronic low back pain, asthma, PTSD, hypercholesterolemia, and BPH. The patient has a history of obesity, with a recent weight loss of 9 pounds noted. He has been advised to continue with diet and exercise to manage his weight. Chronic low back pain is managed with narcotic pain medication as needed, and the patient remains active despite the pain. Asthma is currently well-controlled, and the patient reports doing well without the use of inhalers. PTSD is part of the patient's medical history, though specific management details were not discussed in this visit. The patient has hypercholesterolemia with an LDL of 133 mg/dL and triglycerides of 212 mg/dL. Lifestyle modifications, including dietary changes, have been recommended to achieve target lipid levels. The patient has been advised to aim for an LDL goal of less than 130 mg/dL and triglycerides of less than 150 mg/dL. The patient has a history of benign prostatic hyperplasia (BPH) and elevated PSA levels. He is currently on Proscar (finasteride) and is scheduled for an ultrasound of the kidneys and follow-up PSA testing. The last PSA was 5.5, showing some improvement from previous levels. If PSA levels remain elevated, a biopsy may be recommended. The patient has a history of tubular adenoma, with the last colonoscopy performed in January 2024. He is due for follow-up as part of preventative care. Seasonal allergies are managed with Zyrtec, and the patient is advised to be cautious of drowsiness associated with its use. Health Maintenance - Follow-up with urology for elevated PSA and ultrasound of kidneys - Dietary modifications to manage hypercholesterolemia - Regular exercise to support weight management and overall health - Colonoscopy follow-up for history of tubular adenoma Social History - Exercise: Patient remains active despite chronic low back pain. - Diet: Patient is advised to follow a healthy diet to manage cholesterol levels. Review of Systems - Respiratory: Reports doing well without inhalers. Denies current respiratory symptoms. - Musculoskeletal: Reports chronic low back pain managed with medication as needed. - Allergic/Immunologic: Reports seasonal allergies managed with Zyrtec. Physical Exam - Genitourinary: Digital rectal examination performed, prostate evaluated. Results - Labs: Normal blood count, normal electrolytes, normal renal function, normal liver function, elevated cholesterol with LDL 133 mg/dL and triglycerides 212 mg/dL. - PSA: Last recorded level was 5.5, showing improvement from previous levels. - Urinalysis: Negative results. Plan The patient will continue with dietary modifications and regular exercise to manage obesity and hypercholesterolemia. The goal is to achieve an LDL level of less than 130 mg/dL and triglycerides of less than 150 mg/dL. The patient is advised to avoid fried foods and consume more green leafy vegetables and lean proteins. For chronic low back pain, the patient will continue using narcotic pain medication as needed and maintain an active lifestyle to help manage symptoms. Asthma is well-controlled, and no changes to the current management plan are necessary. The patient is scheduled for an ultrasound of the kidneys and follow-up PSA testing to monitor benign prostatic hyperplasia and elevated PSA levels. If PSA levels remain elevated, a biopsy may be considered. The patient is currently on Proscar finasteride) for BPH management. Seasonal allergies are managed with Zyrtec, and the patient is advised to be cautious of potential drowsiness. Follow-up with urology is planned, and the patient is reminded of the importance of avoiding certain activities before PSA testing to ensure accurate results. Patient was informed and verbally consented to the use of an ambient scribe for clinic note documentation during this visit. Discussion Notes I discussed with the patient the importance of managing cholesterol levels through diet and exercise, aiming for specific LDL and triglyceride targets. We reviewed the current management of chronic low back pain and asthma, noting that no changes are needed at this time. I explained the follow-up plan for BPH and elevated PSA, including the potential need for a biopsy if PSA levels remain high. We also discussed the management of seasonal allergies with Zyrtec and the need to avoid certain activities before PSA testing to ensure accurate results. Patient Instructions - Continue with dietary changes to lower cholesterol levels. - Maintain regular exercise to support weight management. - Use pain medication as needed for low back pain. - Follow up with urology for PSA monitoring and ultrasound. - Avoid biking and sexual activity before PSA testing. - Take Zyrtec for seasonal allergies, but be cautious of drowsiness.
== END 2024-10-07 10:02 | disposition home or self-care (01) ==
PROVIDERS: PCP Internal Medicine; Visit Provider Internal Medicine
DX: J45.20 Mild intermittent asthma, uncomplicated (principal); M54.50 Low back pain, unspecified; E66.9 Obesity, unspecified; Z68.31 Body mass index [BMI] 31.0-31.9, adult; G89.29 Other chronic pain; R97.20 Elevated prostate specific antigen [PSA]; N40.0 Benign prostatic hyperplasia without lower urinary tract symptoms; E78.00 Pure hypercholesterolemia, unspecified; F41.1 Generalized anxiety disorder

== ENCOUNTER → 2024-10-07 09:17 | Outpatient (BNVA) | payer BC, SELFPAY | PROVIDERS: PCP Internal Medicine; Visit Provider Internal Medicine ==

== ENCOUNTER 2024-11-23 11:31 | Outpatient (REF) | payer BC, SELFPAY ==
--- NOTE | ~2024-11-23 | US_ITS ---
CLINICAL HISTORY: N40.0 - Benign prostatic hyperplasia without lower urinary tract symptoms --- Additional Notes or Special Instructions: Please measure prostate Retroperitoneal ultrasound Comparison: None available Findings: The kidneys are normal in echotexture bilaterally. No hydronephrosis. The right kidney is normal in size, measuring 11.0cm in length. The left kidney is normal in size, measuring 10.6cm in length. The urinary bladder is unremarkable. Prevoid volume 198.0 mL. Postvoid volume 14.6 mL. Ureteral jets are visualized bilaterally. The prostate is normal in size, measuring 3.5 x 4.2 x 4.3cm, volume of 33.1 mL. Impression: Unremarkable kidneys. No elevated postvoid residual volume to indicate urinary retention. The prostate is normal in size for the patient's age. This document has been electronically signed by: Tamera Murillo MD on 11/23/2024 16:22:59
--- OUTSIDE RECORDS SUMMARY | 2024-11-23 12:22 | XMS_ITS | Patient Health Record ---
Author Organization [facility] Address [address] [place] [address] Care Team Providers Care Sole Layer Name Role Phone Dagoberto Varela MD Primary Care Provider Orlin Muhammad Unavailable [phone] Allergies Allergen (clinical drug ingredient) Drug/Non Drug Allergy documented on EMR Reaction Allergy Type Onset Date Status Cortisone Unknown Drug Allergy Active Reason For Referral Referring Provider First Name Dagoberto Referring Provider Last Name Avery Referring Provider Speciality Internal M edicine Referred Organization [facility] Referred Provider Orlin Eastman Referred Address [address],[place], [place],[address], Referred Provider Specialty Gastroentero logy General Notes Caty Sinclair 024 04:26:56 PM EDT > requested an o blue referral from Dr. Vareal's office for visit with Dr. Eastman on [phone] Referral Priority Routine Medications Medication SIG (Take, [...] Status Risk Notes Problem Colon cancer screening (Z12.11) Active confirmed Problem History of polyp of colon (situation) (521585339) Personal history of colonic polyps (Z86.010) Active confirmed Problem Pre-procedure evaluation check (104805846) Encounter for other preprocedural examination (Z01.818) Active confirmed Problem Diverticular disease of colon (570394857) Diverticulosis of large intestine without perforation or abscess without bleeding (K57.30) Active confirmed Problem Long-term current use of aspirin (273563022641058 ) Aspirin long-term use (Z79.82) Active confirmed Problem Family History of Cancer of Colon (Situation) (011104167) Family history of colon cancer (Z80.0) Active confirmed Encounters Encounter Location Date Provider [place] [facility] [address] [place] [phone] 02/06/2024 Orlin Eastman Colon cancer zoilae vida Z12.11 ; Personal history of colonic [...] hemorrhoids (ICD-10 - K64.8) Plan Of Treatment Future Test Test Name Order Date COLONOSCOPY 01/06/2014 COLONOSCOPY 10/03/2023 Insurance Providers Payer Name Payer Address Payer Phone Subscriber Number Group Number Insured Name Patient Relationship to Insured Coverage Start Date Coverage End Date [facility] [employer] CLAIMS [address] [place] [address] [id number] SOHAN BYRNE Self - patient is the insured Medical (General) History Medical History History ICD Code Denies [place],DM,CVA,Lung disease,renal dise ase Back pain--disc disease Asthma Colonoscopy 03/2014 with removal of a sm all tubular adenoma Surgical History Surgery Date(Month/Year)
== END 2024-11-23 11:32 | disposition home or self-care (01) ==
LOC: HO.US 11:31
PROVIDERS: PCP Internal Medicine; Visit Provider Urology
DX: N40.0 Benign prostatic hyperplasia without lower urinary tract symptoms (principal)
CPT/HCPCS: 76770

== ENCOUNTER → 2024-11-23 11:33 | Outpatient (BNV) | payer BC, SELFPAY | PROVIDERS: PCP Internal Medicine; Visit Provider Radiology Diagnostic Radiology | DX: N40.0 Benign prostatic hyperplasia without lower urinary tract symptoms (principal) | CPT/HCPCS: 76770 ==

== ENCOUNTER 2025-02-02 10:17 | Outpatient (REF) | payer BC, SELFPAY ==
--- OUTSIDE RECORDS SUMMARY | 2024-01-30 03:30 | XMS_ITS ---
Author Organization [facility] Address [address] [place] [address] Care Team Providers Care Rehab Department Manager Name Role Phone Dagoberto Varela MD Primary Care Provider Orlin Muhammad [phone] REASON FOR VISIT COLON SCREENING Encounters Encounter Location Date Provider Diagnosis [facility] Outpatient [address], [place] [phone] 01/30/2024 Orlin Eastman Plan Of Treatment No Information Progress Notes * SOHAN BYRNEDOB:1965 (59 yo M)Acc No.[id number]:01/30/2024 COLON WITH MAC Patient: SOHAN RICHEY Provider: Adrian Eastman MD :1965 A ge:58 Y S ex:Male Date:01/30/2024 Address:[address] [place], [place] [phone] Pcp:Dagoberto Varela MD Subjective: * Chief Complaints: * 1 . COLON SCREENING. * Medical History: Objective: * Vitals: Assessment: Plan: * Treatment: * * The named appointment provid er may or may not be the originator of this progress note, and it is not deemed complete until electronically signed by the appointment provider. Sign off status: Pending * Provider: Adrian Eastman MD Date: Generated for Shu stuart/Kobi/Vinoditting on: 12:10 PM EDT
--- OUTSIDE RECORDS SUMMARY | 2024-02-06 09:20 | XMS_ITS ---
Author Organization [facility] Address [address] [place] [address] Care Team Providers Care Security Support Analyst Name Role Phone Po Dagoberto GREEN Primary Care Provider Orlin Muhammad Unavailable [phone] REASON FOR VISIT colon screening Problems Problem Type SNOMED Code ICD Code Onset Dates Problem Status W/U Status Risk Notes Problem Diverticular disease of colon (233937902) Diverticulosis of large intestine without perforation or abscess without bleeding (K57.30) Active confirmed Encounters Encounter Location Date Provider Diagnosis [facility] [place] [address] [place] [phone] 02/06/2024 Orlin Eastman Colon cancer scree vida Z12.11 ; Personal history of colonic polyps Z86.0100 ; Diverticulosis of large intestine without perforation or abscess without bleeding K57.30 and Other hemorrhoids K64.8 Assessments Encounter Date Diagnosis (ICD Code) Assessment Notes Treatment Notes Treatment Clinical Notes Section Notes 02/06/2024 Colon cancer screening (ICD-10 - Z12.11) 02/06/2024 Personal history of colonic polyps (ICD-10 - Z86.0100) 02/06/2024 Diverticulosis of large intestine without perforation or abscess without bleeding (ICD-10 - K57.30) 02/06/2024 Other hemorrhoids (ICD-10 - K64.8) Plan Of Treatment No Information Progress Notes * SOHAN BYRNEDOB:1965 (59 yo M)Acc No.[id number]:02/06/2024 COLON WITH MAC Patient: MARION RICHEYONY Provider: Adrian Eastman MD :1965 A ge:58 Y S ex:Male Date:02/06/2024 Address:[address] [place], [place] [id number] Pcp:Dagoberto Varela MD Subjective: * Chief Complaints: * 1 . Colon screening. * Medical History: Objective: * Vitals: Assessment: * Assessment: 1. C olon cancer screening - Z12.11 (Primary) 2 . P ersonal history of colonic polyps - Z86.0100 3 . D iverticulosis of large intestine without perforation or abscess without bleeding - K57.30 4 . O ther hemorrhoids - K64.8 ? Plan: * Treatment: * Procedure Codes: 4 5378 DIAGNOSTIC COLONOSCOPY, Modifiers: 33 * * The named appointment provid er may or may not be the originator of this progress note, and it is not deemed complete until electronically signed by the appointment provider. Sign off status: Pending * Provider: Adrian Eastman MD Date: Generated for Shu stuart/Kobi/eTransmitting on: 12:10 PM EDT
[2025-02-02 11:36] LABS: PSA,Total (Free>4and<10) 3.51 ng/mL (0.00-4.00)
--- OUTSIDE RECORDS SUMMARY | 2025-02-02 12:10 | XMS_ITS | Patient Health Record ---
Author Organization [facility] Address [address] [place] [address] Care Team Providers Care Stogy Maker Name Role Phone Po Dagoberto GREEN Primary Care Provider Orlin Muhammad Unavailable [phone] Allergies Allergen (clinical drug ingredient) Drug/Non Drug Allergy documented on EMR Reaction Allergy Type Onset Date Status Cortisone Unknown Drug Allergy Active Reason For Referral No Information Medications Medication SIG (Take, Route, Frequency, Duration) Notes Start Date End Date Status Ativan 1 MG take 1 on the morning of the colonoscopy shortly before leaving for the hospital Orally Once; Duration: 1 days 10/03/2023 Active Skelaxin Active Aspirin 81 QOD Active Multivitamin Active traMADol HCl 50 MG Oral; Duration: 30 Active Metaxalone 800 MG take 1 tablet by mouth twice a day Oral; Duration: 45 Skelaxin for his back Not-Taking Problems Problem Type SNOMED Code ICD Code Onset Dates Problem Status W/U Status Risk Notes Problem Colon cancer screening (984291296) Colon cancer screening (Z12.11) Active confirmed Problem History of polyp of colon (situation) (567283103) Personal history of colonic polyps (Z86.010) Active confirmed Problem Pre-procedure evaluation check (770560458) Encounter for other preprocedural examination (Z01.818) Active confirmed Problem Diverticular disease of colon (794672719) Diverticulosis of large intestine without perforation or abscess without bleeding (K57.30) Active confirmed Problem Long-term current use of aspirin (445087772421905 ) Aspirin long-term use (Z79.82) Active confirmed Problem Family History of Cancer of Colon (Situation) (219356312) Family history of colon cancer (Z80.0) Active confirmed Encounters Encounter Location Date Provider Diagnosis [facility] [place] [address], [place] [phone] 02/06/2024 Orlin Eastman Colon cancer micheal mcpherson Z12.11 ; Personal history of colonic polyps [...] Insured Coverage Start Date Coverage End Date [facility] PROFESSIONAL CLAIMS [address] [place] [address] [id number] SOHAN BYRNE Self - patient is the insured Medical (General) History Medical History History ICD Code Denies CT,DM,CVA,Lung disease,renal dise ase Back pain--disc disease Asthma Colonoscopy 03/2014 with removal of a sm all tubular adenoma Surgical History Surgery Date(Month/Year)
== END 2025-02-02 10:18 | disposition home or self-care (01) ==
LOC: HO.LAB 10:17
PROVIDERS: PCP Internal Medicine; Visit Provider Urology
DX: Z12.5 Encounter for screening for malignant neoplasm of prostate (principal); N40.0 Benign prostatic hyperplasia without lower urinary tract symptoms; R97.20 Elevated prostate specific antigen [PSA]
CPT/HCPCS: 36415; 84153

== ENCOUNTER 2025-02-10 10:35 | Outpatient (AMB) | payer BC, SELFPAY ==
[2025-02-10 10:43] VITALS: BP 110/78; PULSE 64; O2SAT 97; BMI 32.2
--- NOTE | 2025-02-10 10:43 | MHC.PC.OV ---
Vital Signs 02/10/25 10:43 Height 6 ft 1 in Weight 244 lb 4 oz BMI 32.2 BP 110/78 Blood Pressure Location Lt brachial Position Sitting Pulse 64 Pulse Source Pulse Oximeter Pulse Oximetry (%) 97 Oxygen Delivery Method Room Air Intake Visit Reasons: CLBP, BPH Engineering Project Manager Required: No Accompanied by: Self / Same As Patient Allergies cortisone Adverse Reaction (Mild, Verified 02/10/25 10:44) Itching Tobacco use date assessed: 02/10/25 Dental Screening Dental Screen Date: 02/10/25 Did you have a dental visit in the last 12 months?: No Did you have a dental problem in the last 6 months where you did not have access to dental care?: No Was dental information given to patient?: No [facility] Medical History Alcohol abuse Erectile dysfunction Hypercholesterolemia PTSD (post-traumatic stress disorder) Vitamin D deficiency Obesity (BMI 30-39.9) Asthma Low back pain Surgical History History of colonoscopy Family History Father Bone cancer Depression Mother Colon cancer Diabetes Stroke Myocardial infarction, acute, initial episode of care Social History Household Members: Spouse Housing: Apartment Are you a primary property caretaker to a significant other at home: No Do you presently have visiting nurse or other home services: No Alcohol intake: former Patient Tobacco Use Status: Former Tobacco user Tobacco use type: Cigarette Years Smoked: stopped 2009 e-Cigarette/Vaping Use: Currently Using Second Hand Smoke Exposure: No service: No Current occupational status: retired Cognitive needs: No Hearing needs: No Vision needs: Yes Questionnaire PHQ-9 Over the last 2 weeks, how often have you been bothered by any of the following problems? 1. Little interest or pleasure in doing things: not at all 2. Feeling down, depressed, or hopeless: not at all 3. Trouble falling or staying asleep, or sleeping too much: not at all 4. Feeling tired or having little energy: not at all 5. Poor appetite or overeating: not at all 6. Feeling bad about yourself - or that you are a failure or have let yourself or your family down: not at all 7. Trouble concentrating on things, such as reading the newspaper or watching television: not at all 8. Moving or speaking so slowly that other people could have noticed. Or the opposite - being so fidgety or restless that you have been moving around a lot more than usual: not at all 9. Thoughts that you would be better off or of hurting yourself in some way: not at all Total score: 0 Source: Developed by Drs. Orlin Dial, Alondra Helm, Darnell Snow and colleagues, with an educational lucas from [employer]. Thrive Questionnaire Date Thrive assessed: 10/07/24 I am a: Patient What is your living situation today?: I have a steady place to live Within the past 12 months, did the food you bought not last and you didn't have the money to get more?: Sometimes True Within the past 12 months, did you worry whether your food would run out before you got money to buy more?: Sometimes True Do you have trouble paying for medicines?: No Do you have trouble getting transportation to medical appointments?: I choose not to answer this question Do you have trouble paying your heating and electricity bill?: Yes Do you have trouble taking care of your child, family member or friend?: No Do you have trouble with day-to-day activities such as bathing, preparing meals, shopping, managing finances, etc.?: No Are you currently unemployed and looking for a job?: No Are you interested in more education?: No Please select the resources that you would like help with: None Currently or been in a relationship where the following occur: No concerns reported THRIVE Score: 3 AUDIT C Alcohol Use Questionnaire (AUDIT-C) 1. How often do you have a drink containing alcohol?: Never 3. How often do you have six or more drinks on one occasion?: Never Total Score: 0 TANIYA-7 AMB Questionnaire TANIYA-7 Date TANIYA - 7 assessed: 10/07/24 Feeling nervous, anxious, or on edge: 0 = Not at all Not being able to stop or control worryin = Not at all Worrying too much about different things: 0 = Not at all Trouble relaxin = Not at all Being so restless that it is hard to sit still: 0 = Not at all Becoming easily annoyed or irritable: 0 = Not at all Feeling afraid as if something awful might happen: 0 = Not at all Total TANIYA-7 score (0-4 normal; 5-9 mild; 10-14 moderate; 15-21 severe): 0 Source: Developed by Drs. Orlin Dial, Alondra Helm, Darnell Snow and colleagues, with an educational lucas from [employer]. Physical exam (Primary Care) Vital Signs: Last Vital Signs Pulse 64 02/10/25 10:43 BP 110/78 02/10/25 10:43 Pulse Ox 97 02/10/25 10:43 Oxygen Delivery Method Room Air 02/10/25 10:43 BMI result Body Mass Index 32.2 Tobacco/Smoking Status: Tobacco use Status Tobacco use date assessed 02/10/25 02/10/25 10:44 Patient Tobacco Use Status Former Tobacco user 02/10/25 10:44 Tobacco use type Cigarette 02/10/25 10:44 e-Cigarette/Vaping Use Currently Using 02/10/25 10:44 PHQ-9: PHQ-9 Score PHQ-9: Total score 0 02/10/25 11:37 Thrive Assessment: Date of Thrive Assessment Date Thrive assessed 10/07/24 02/10/25 10:44 Currently or been in a relationship where the following occur: No concerns reported Const General: alert; No acute distress Eyes Conjunctivae: conjunctivae normal Resp Auscultation: clear to auscultation bilaterally Cardio Rate: regular rate Rhythm: regular rhythm GI Inspection: Yes normal to inspection Extrem General: Yes normal to inspection and No edema Office Procedures Flu Questionnaire Does the patient have a severe egg allergy?: No Does the patient have severe life threatening allergies?: No Does the patient have a fever or illness today?: No Has the patient ever had Guillain-Deltona Syndrome?: No Has the patient ever had any past reaction to a flu shot?: No Immunizations Fluarix [id number] (PF) 45 mcg (15 mcg x 3)/0.5 mL IM syringe Performing Provider: Dagoberto Varela MD [facility] Administered by: MIKAEL Ramirez on 02/10/25 11:37 Dose Route Admin Location Dispensed Lot Number Expiration Date NDC Sawmill Equipment Operator 0.5 mL IM Left Deltoid 0.5 mL [id number] 10/18/25 01315-358-82 [employer] VIS Given Date VIS Provided VIS Publication Date 02/10/25 Single Vaccine 24 Eligibility Eligibility Date Funding Source Not [facility] Eligible 02/10/25 Private Coding Level of Care Code Est Pt Level 4 (27137) Complex EM visit Add On G2211 Diagnoses Hypercholesterolemia E78.00 Obesity (BMI 30-39.9) E66.9 PSA elevation R97.20 Chronic low back pain without sciatica, unspecified back pain laterality M54.5; G89.29 Back pain laterality: unspecified Chronicity: chronic Sciatica presence: without sciatica Mild intermittent asthma without complication J45.20 Asthma complication type: uncomplicated Asthma persistence: intermittent Asthma severity: mild Assessment & Plan Assessment & Plan (1) Hypercholesterolemia: Code(s): E78.00 - Pure hypercholesterolemia, unspecified Category: Medical Plan: Avoid fried foods, chicken skin, eggs, butter margarine, pastries and meat. Be it pork or beef they have a lot of cholesterol LDL goal of less than 130 and triglyceride of less than 150. Will request for a new blood work (2) Obesity (BMI 30-39.9): Code(s): E66.9 - Obesity, unspecified Category: Medical Plan: Diet and exercise (3) PSA elevation: Code(s): R97.20 - Elevated prostate specific antigen [PSA] Category: Medical Plan: Continuing to monitor and patient is being followed up by Urology. Ultrasound done negative (4) Low back pain: Comment: Left paracentral disc herniation L5-S1 2009 Code(s): M54.5 - Low back pain Category: Medical Qualifiers: Back pain laterality: unspecified Chronicity: chronic Sciatica presence: without sciatica Qualified Code(s): M54.5 - Low back pain; G89.29 - Other chronic pain Plan: Continue to keep herself active (5) Asthma: Code(s): J45.909 - Unspecified asthma, uncomplicated Category: Medical Qualifiers: Asthma complication type: uncomplicated Asthma persistence: intermittent Asthma severity: mild Qualified Code(s): J45.20 - Mild intermittent asthma, uncomplicated Plan: Stable Plan History of Present Illness The patient is a 59-year-old male presenting for a routine follow-up visit to manage chronic conditions and preventative care. The patient has a history of obesity, with a recent weight gain of 5 pounds noted during the visit. He has been diagnosed with asthma, chronic low back pain, and post-traumatic stress disorder (PTSD). Additionally, he has hypercholesterolemia and generalized anxiety disorder. The patient has a history of benign prostatic hyperplasia (BPH) and a history of tubular adenoma of the colon, with the last colonoscopy performed in January 2024. He underwent a kidney ultrasound on November 23, which showed unremarkable kidneys and a normal prostate with no elevated postvoid residual. Blood work done in June showed a normal blood count, but cholesterol tests revealed elevated LDL and triglycerides. The patient's prostate-specific antigen (PSA) levels have been monitored, showing a decrease from 7.45 in June to 3.51 recently, which is considered good. He is being followed up by urology, and his cholesterol management plan includes a goal of LDL less than 130 and triglycerides less than 150. Health Maintenance - Prostate-specific antigen (PSA) monitoring with recent levels showing improvement - Cholesterol management with goals of LDL less than 130 and triglycerides less than 150 - Routine follow-up with urology Social History Review of Systems - General: Reports recent weight gain of 5 pounds - Respiratory: Reports asthma - Musculoskeletal: Reports chronic low back pain - Psychiatric: Reports post-traumatic stress disorder (PTSD) and generalized anxiety disorder Physical Exam Results - Labs: Normal blood count in June - Labs: Elevated LDL and triglycerides in June - Tests: Kidney ultrasound on November 23 showing unremarkable kidneys and normal prostate - Tests: Prostate-specific antigen (PSA) levels decreased from 7.45 in June to 3.51 recently Plan Patient was informed and verbally consented to the use of an ambient scribe for clinic note documentation during this visit. 1. Obesity The patient has been advised to engage in regular physical activity and monitor dietary intake to manage weight gain. 2. Asthma The patient should continue current asthma management and report any exacerbations or changes in symptoms. 3. Chronic Low Back Pain The patient is advised to continue using prescribed medications such as tramadol and metaxalone as needed for pain management. 4. Hypercholesterolemia The patient is advised to follow a cholesterol management plan with a goal of LDL less than 130 and triglycerides less than 150, and a follow-up blood test is planned in three months. 5. Benign Prostatic Hyperplasia (Bph) The patient is being monitored by urology, with recent tests showing normal prostate size and function. 6. Preventative Care The patient is advised to receive a flu shot during the visit and consider a shingles vaccine available at the pharmacy. Discussion Notes During the visit, I discussed the importance of managing cholesterol levels and maintaining a healthy weight through diet and exercise. We reviewed the patient's recent PSA levels, which have improved, and I advised continuing follow-up with urology. I recommended receiving a flu shot today and considering a shingles vaccine available at the pharmacy. We also discussed the plan for a follow-up cholesterol test in three months. Patient Instructions - Engage in regular physical activity and monitor dietary intake to manage weight. - Continue current asthma management and report any changes in symptoms. - Use prescribed medications such as tramadol and metaxalone as needed for back pain. - Follow cholesterol management plan with a goal of LDL less than 130 and triglycerides less than 150. - Receive a flu shot today and consider a shingles vaccine available at the pharmacy. Orders: Orders Thyroid Stimulating Hormone 3 Months E78.00 - Pure hypercholesterolemia, unspecified Lipid Panel 3 Months E78.00 - Pure hypercholesterolemia, unspecified Hemoglobin A1c 3 Months E78.00 - Pure hypercholesterolemia, unspecified Complete Blood Count Auto Diff 3 Months E78.00 - Pure hypercholesterolemia, unspecified Comprehensive Met. Panel 3 Months E78.00 - Pure hypercholesterolemia, unspecified Free T4 (Free Thyroxine) 3 Months E78.00 - Pure hypercholesterolemia, unspecified Vitamin B12 and Folate 3 Months E78.00 - Pure hypercholesterolemia, unspecified Prostate Specific Antigen Scr 3 Months E78.00 - Pure hypercholesterolemia, unspecified Influenza [id number] Immunization Today Z23 - Encounter for immunization
== END 2025-02-10 11:40 | disposition home or self-care (01) ==
LOC: HO.HMCH 10:36
PROVIDERS: PCP Internal Medicine; Visit Provider Internal Medicine
DX: E78.00 Pure hypercholesterolemia, unspecified (principal); E66.9 Obesity, unspecified; R97.20 Elevated prostate specific antigen [PSA]; Z68.32 Body mass index [BMI] 32.0-32.9, adult; M54.50 Low back pain, unspecified; G89.29 Other chronic pain; J45.20 Mild intermittent asthma, uncomplicated; Z23 Encounter for immunization

== ENCOUNTER → 2025-02-10 10:35 | Outpatient (BNVA) | payer BC, SELFPAY | PROVIDERS: PCP Internal Medicine; Visit Provider Internal Medicine | DX: J45.20 Mild intermittent asthma, uncomplicated (principal); E78.00 Pure hypercholesterolemia, unspecified; E66.9 Obesity, unspecified; M54.50 Low back pain, unspecified; G89.29 Other chronic pain; N40.0 Benign prostatic hyperplasia without lower urinary tract symptoms; Z23 Encounter for immunization | CPT/HCPCS: 90471; 90656; 96127 ==

== ENCOUNTER 2025-02-17 10:04 | Outpatient (AMB) | payer BC, SELFPAY ==
--- OUTSIDE RECORDS SUMMARY | 2024-01-30 03:30 | XMS_ITS ---
Author Organization [facility] Address [address] [place] [id number] Care Team Providers Care Pool Finisher Name Role Phone Dagoberto Vareal MD Primary Care Provider Orlin Muhammad [phone] REASON FOR VISIT COLON SCREENING Encounters Encounter Location Date Provider Diagnosis [facility] [place] [address], [place] [phone] 01/30/2024 Orlin Eastman Plan Of Treatment No Information Progress Notes * SOHAN BYRNEDOB:1965 (59 yo M)Acc No.[id number]:01/30/2024 COLON WITH MAC Patient: SOHAN RICHEY Provider: Adrian Eastman MD :1965 A ge:58 Y S ex:Male Date:01/30/2024 Address:[address] [place], [place] [phone] Pcp:Dagoberto Varela MD Subjective: * Chief Complaints: [...] MD Date: Generated for Shu stuart/Kobi/Vinoditting on: 12:08 PM EDT
--- OUTSIDE RECORDS SUMMARY | 2024-02-06 09:20 | XMS_ITS ---
Author Organization [facility] Address [address] [place] [address] Care Team Providers Care Locomotive Inspector Name Role Phone Po Dagoberto GREEN Primary Care Provider Orlin Muhammad Unavailable [phone] REASON FOR VISIT colon screening Problems Problem Type SNOMED Code ICD Code Onset Dates Problem Status W/U Status Risk Notes Problem Diverticular disease of colon (797615183) Diverticulosis of large intestine without perforation or abscess without bleeding (K57.30) Active confirmed Encounters Encounter Location Date Provider Diagnosis [facility] Outpatient [address] [place] [phone] 02/06/2024 Orlin Eastman Colon cancer scree vida [...] Notes * SOHAN BYRNEDOB:1965 (59 yo M)Acc No.[id number]:02/06/2024 COLON WITH MAC Patient: MARION RICHEYONY Provider: Adrian Eastman MD :1965 A ge:58 Y S ex:Male Date:02/06/2024 Address:[address] [place], [place] [phone] Pcp:Dagoberto Varela MD Subjective: * Chief Complaints: [...] MD Date: Generated for Shu stuart/Kobi/eTransmitting on: 12:08 PM EDT
--- NOTE | 2025-02-17 10:10 | A.OFFVIS_ITS ---
Intake Visit Reasons: 4m/US/PSA Intake Note: Patient presents today for 4m/US/PSA * 11/23 Retroperitoneal US * Total PSA:3.51 Urology Medication:Vitamin B12 Blood Thinner:Aspirin Antibiotic Allergies:None PVR:74ml Allergies cortisone Adverse Reaction (Mild, Verified 02/17/25 10:10) Itching Medication List - Last Reconciled 02/17/25 by Jim Zurita MD ascorbate calcium (vitamin C) 500 mg PO DAILY aspirin 81 mg PO Q2D cyanocobalamin (vitamin B-12) 1,000 mcg PO DAILY finasteride (Proscar) 5 mg PO DAILY ketoconazole 2% 1 appl topical 2XW metaxalone 800 mg PO TID multivitamin 1 tab PO DAILY tramadol 50 mg PO Q8H 30 days HPI Comments Details: 02/17/25--Mirza is here in follow-up. He was initially evaluated for elevated PSA 06/29/2024 PSA was 7.45. Follow-up PSA 02/02/2025 is 3.51 he was sent for ultrasound retroperitoneal kidneys are normal prostate estimated volume 33 mL; bladder and postvoid residual within normal limits History of Present Illness The patient is a 59-year-old male presenting for follow-up of elevated PSA levels. The initial PSA level on 06/29/24 was 7.45, which prompted further evaluation. Pt started on proscar. A follow-up PSA on 02/02/25 showed a decrease to 3.51. The patient underwent an ultrasound which revealed normal retroperitoneal kidneys and an estimated prostate volume of 33 mL. The post-void residual was within normal limits, and urinalysis was negative for blood or leukocytes. The patient is currently on Proscar 5 mg daily, which is being continued. He reports nocturia, waking once during the night to urinate, which is a new symptom. Results - Labs: PSA 7.45 on 06/29/24; PSA 3.51 on 02/02/25 - Imagin11/23/24--Ultrasound showed normal retroperitoneal kidneys and prostate volume of 33 mL - Urinalysis: Negative for blood or leukocytes Plan 1. Elevated Prostate-Specific Antigen (Psa) - Continue monitoring PSA levels and follow up with MRI of the prostate in six months - Continue current medication regimen with Proscar 5 mg daily. 2. Benign Prostatic Hyperplasia - Continue Proscar 5 mg daily to manage prostate size and symptoms. - Monitor nocturia and dietary habits, advising reduction in red meat consumption. 10/04/24-- - The patient is a 59-year-old male presenting with elevated Prostate-Specific Antigen (PSA) levels. - PSA levels were initially measured at 7.45 ng/mL on June 29, 2024, and subsequently decreased to 5.75 ng/mL on August 04, 2024. - The patient has no known family history of prostate cancer, but there is a fa bharti history of other cancers in his father, including bone, and colon cancer. - He denies any obstructive urinary symptoms, states he feels that he has a normal flow, nocturia x 1 per night. - Office urinalysis conducted today was negative for abnormalities. Results - Labs: PSA levels were 7.45 ng/mL on June 29, 2024, and 5.75 ng/mL on August 04, 2024. - Tests: Office urinalysis today was negative for abnormalities. Prostate examination: No suspicious hard nodules, smooth moderately enlarged Discussion Notes I discussed with the patient that his PSA levels, although elevated, have decreased from 7.45 ng/mL to 5.75 ng/mL, which is a positive sign. I explained that PSA can be elevated due to benign prostatic hyperplasia or prostate cancer. Given the decrease, I recommended repeating the PSA test in four months and starting proscar 5 mg daily. I also advised an ultrasound of the prostate, kidneys, and bladder for comprehensive evaluation. The patient was informed about the potential need for a biopsy if the PSA does not continue to decrease. We discussed the importance of monitoring and follow-up, and I provided instructions for the upcoming blood test, including fasting and abstaining from sexual activity for two days prior. [facility] Medical History Alcohol abuse Erectile dysfunction Hypercholesterolemia PTSD (post-traumatic stress disorder) Vitamin D deficiency Obesity (BMI 30-39.9) Asthma Low back pain Surgical History History of colonoscopy Family History Father Bone cancer Depression Mother Colon cancer Diabetes Stroke Myocardial infarction, acute, initial episode of care Social History Household Members: Spouse Housing: Apartment Are you a primary healthcare liaison to a significant other at home: No Do you presently have visiting nurse or other home services: No Alcohol intake: former Patient Tobacco Use Status: Former Tobacco user Tobacco use type: Cigarette Years Smoked: stopped 2009 e-Cigarette/Vaping Use: Currently Using Second Hand Smoke Exposure: No service: No Current occupational status: retired Cognitive needs: No Hearing needs: No Vision needs: Yes Review of Systems Const All systems reviewed & are unremarkable except as noted in HPI and below Reports no additional complaints Eyes Reports no additional complaints ENT Reports no additional complaints Card Reports no additional complaints Resp Reports no additional complaints GI Reports no additional complaints Reports as per HPI Musc Reports no additional complaints Skin/Breast Reports system reviewed and no additional complaints, except as documented Neuro Reports no additional complaints Psych Reports no additional complaints Endo Reports no additional complaints Cornelio/Lymph Reports no additional complaints Aller/Immun Reports no additional complaints Results Reviewed Results Reviewed: Date of Service: 11/23/24 CLINICAL HISTORY: N40.0 - Benign prostatic hyperplasia without lower urinary tract symptoms --- Additional Notes or Special Instructions: Please measure prostate Retroperitoneal ultrasound Comparison: None available Findings: The kidneys are normal in echotexture bilaterally. No hydronephrosis. The right kidney is normal in size, measuring 11.0cm in length. The left kidney is normal in size, measuring 10.6cm in length. The urinary bladder is unremarkable. Prevoid volume 198.0 mL. Postvoid volume 14.6 mL. Ureteral jets are visualized bilaterally. The prostate is normal in size, measuring 3.5 x 4.2 x 4.3cm, volume of 33.1 mL. Impression: Unremarkable kidneys. No elevated postvoid residual volume to indicate urinary retention. The prostate is normal in size for the patient's age. Assessment & Plan Assessment & Plan (1) PSA elevation: Code(s): R97.20 - Elevated prostate specific antigen [PSA] Category: Medical (2) BPH associated with nocturia: Code(s): N40.1 - Benign prostatic hyperplasia with lower urinary tract symptoms; R35.1 - Nocturia Category: Medical Plan Plan 1. Elevated Prostate-Specific Antigen (Psa) - Continue monitoring PSA levels and follow up with MRI of the prostate in six months - Continue current medication regimen with Proscar 5 mg daily. 2. Benign Prostatic Hyperplasia - Continue Proscar 5 mg daily to manage prostate size and symptoms. - Monitor nocturia and dietary habits, advising reduction in red meat consumption. Orders: Orders MR Prostate wo/w con 5 Months R97.20 - Elevated prostate specific antigen [PSA] Medications: Refilled finasteride (Proscar) 5 mg PO DAILY 90 tabs 3RF Patient Instructions: The patient had an opportunity to ask questions regarding treatment plan. The patient expressed understanding and agreement with the above treatment plan. The patient is aware they should contact our office by phone for worsening of their current condition or the appearance of new symptoms. Compliance is encouraged with any medications and followup testing that is ordered. It is a privilege to be allowed the opportunity to participate in the urologic care of your patient. If you have any questions or concerns regarding treatment for the above conditions please do not hesitate to contact me. The office telephone contact is [phone]. This note is constructed in part using voice recognition software. While every effort has been made to ensure accuracy hydraulic assembler errors may have been included. Yours sincerely, Jim Zurita MD Scribe Plan - Not visible on output: Patient was informed and verbally consented to the use of an ambient scribe for clinic note documentation during this visit. Coding Level of Care Code Est Pt Level 4 (75818) Complex EM visit Add On G2211 Diagnoses PSA elevation R97.20 BPH associated with nocturia N40.1; R35.1
--- OUTSIDE RECORDS SUMMARY | 2025-02-17 12:08 | XMS_ITS | Patient Health Record ---
Author Organization [facility] Address [address] [place] [address] Care Team Providers Care Family Services Manager Name Role Phone Po Dagoberto GREEN Primary Care Provider Orlin Muhammad [phone] Allergies Allergen (clinical drug ingredient) Drug/Non Drug [...] Status Risk Notes Problem Colon cancer screening (728414659) Colon cancer screening (Z12.11) Active confirmed Problem History of polyp of colon (situation) (922923816) Personal history of colonic polyps (Z86.010) Active confirmed Problem Pre-procedure evaluation check (700192346) Encounter for other preprocedural examination (Z01.818) Active confirmed Problem Diverticular disease of colon (182694970) Diverticulosis of large intestine without perforation or abscess without bleeding (K57.30) Active confirmed Problem Long-term current use of aspirin (672638063101584 ) Aspirin long-term use (Z79.82) Active confirmed Problem Family History of Cancer of Colon (Situation) (409411152) Family history of colon cancer (Z80.0) Active confirmed Plan Of Treatment Future Test Test Name Order Date COLONOSCOPY 01/06/2014 COLONOSCOPY 10/03/2023 Insurance Providers Payer Name Payer Address Payer Phone Subscriber Number Group Number Insured Name Patient Relationship to Insured Coverage Start Date Coverage End Date [facility] [employer] CLAIMS [address] [place] [address] [id number] SOHAN BYRNE Self - patient is the insured Medical (General) History Medical History History ICD Code Denies IA,DM,CVA,Lung disease,renal dise ase Back pain--disc disease Asthma Colonoscopy 03/2014 with removal of a sm all tubular adenoma Surgical History Surgery Date(Month/Year)
== END 2025-02-17 11:22 | disposition home or self-care (01) ==
LOC: HO.HUSH 10:05
PROVIDERS: PCP Internal Medicine; Visit Provider Urology
DX: R97.20 Elevated prostate specific antigen [PSA] (principal); N40.1 Benign prostatic hyperplasia with lower urinary tract symptoms; R35.1 Nocturia
CPT/HCPCS: 99214

== ENCOUNTER → 2025-02-17 10:04 | Outpatient (BNVA) | payer BC, SELFPAY | PROVIDERS: PCP Internal Medicine; Visit Provider Urology | DX: R97.20 Elevated prostate specific antigen [PSA] (principal); N40.1 Benign prostatic hyperplasia with lower urinary tract symptoms; R35.1 Nocturia | CPT/HCPCS: 51798; 81003 ==